=== PATIENT | male | born 1955 | race Caucasian/White ===

== ENCOUNTER → 2018-02-06 01:00 | Outpatient (CLI) | payer OTHER, SELFPAY | PROVIDERS: Family Provider Family Medicine; PCP Family Medicine | DX: Z23 Encounter for immunization (principal) | CPT/HCPCS: 90471; 90686 ==

== ENCOUNTER → 2018-07-28 07:33 | Outpatient (CLI) | payer OTHER, SELFPAY ==
--- NOTE | 2018-07-28 07:35 | DI.RAD.S_ITS ---
PROCEDURE: XR LUMBAR SPINE MIN 4V INDICATIONS: lumbsacral spondylposis with hip djd and left LE pain TECHNIQUE: 5 views of the lumbar spine were acquired. COMPARISON: [facility], , L-SPINE 2-3 VIEWS, 12/17/2015, 8:27. FINDINGS: Bones: 5 nonrib-bearing vertebrae are present. There is normal bony alignment. No vertebral body compression fractures. Note is made of a moderately severe degree of degenerative disc disease at L3-4, and slightly less at L5-S1. No suspicious bony lesions. Soft tissues: Overlying bowel gas pattern is normal. No suspicious soft tissue calcifications. Oblique images: No pars defects. IMPRESSION: The degenerative disc disease present at L3-4 does not appear to have significantly worsened from 2016 bed at the L5-S1 level there has been a mild interval worsening of the degree of disc height reduction at that level when compared to the prior study. No interval trauma is found. Spinal or foraminal stenosis referrable to the 2 levels discussed above may be present in this clinical circumstance. Dictated by: Ariel Pang M.D. on 07/28/2018 at 10:22 Approved by: Ariel Pang M.D. on 07/28/2018 at 10:24
== END ==
PROVIDERS: PCP Family Medicine; Visit Provider Physical Medicine & Rehabilitation
DX: M47.817 Spondylosis without myelopathy or radiculopathy, lumbosacral region (principal); M51.36 Other intervertebral disc degeneration, lumbar region; M51.37 Other intervertebral disc degeneration, lumbosacral region; M16.9 Osteoarthritis of hip, unspecified; M79.605 Pain in left leg
CPT/HCPCS: 72110

== ENCOUNTER → 2019-01-09 14:48 | Outpatient (CLI) | payer OTHER, SELFPAY | PROVIDERS: PCP Family Medicine | DX: Z23 Encounter for immunization (principal) | CPT/HCPCS: 90471; 90662 ==

== ENCOUNTER → 2019-05-03 08:31 | Outpatient (CLI) | payer OTHER, SELFPAY ==
--- NOTE | 2019-05-03 08:33 | DI.MRI.S_ITS ---
PROCEDURE: MR HIP LT WO CON INDICATIONS: left hip pain TECHNIQUE: Noncontrast coronal T1 spin echo and STIR through the bony pelvis. Coronal and axial T2 fast spin echo with fat saturation, sagittal T1 spin echo, and oblique axial T2 fast spin echo with fat saturation through the hip. COMPARISON: None. FINDINGS: Image quality: Diagnostic. Bones and joints: No displaced fractures or dislocations of the left hip are evident. No evidence to suggest avascular necrosis is appreciated. There is diffuse marrow edema involving the head and neck of the proximal left femur. Prominent areas of degenerative cystic change/intraosseous geode formation is evident along the left femoral head with a cystic structure evident measuring approximately 3.4 x 1.5 cm. Degenerative cystic changes are also evident within the adjacent to superior acetabulum with associated marrow edema. Extensive chondromalacia of the hip is identified. Slight bony remodeling along the superior margin of the femoral head and acetabulum is evident. The alpha angle of the right femoral head may be slightly increased at approximately 57?. There is a small left hip joint effusion. The remainder of the imaged osseous structures of the included pelvis demonstrate no acute fractures or suspicious osseous lesions. However, there appear to be at least moderate degenerative changes of the pubis symphysis and included lower lumbar spine. Probable mild degenerative changes of the right hip and sacroiliac joints are evident. Labrum: Evaluation of the acetabular labrum is suboptimal without intra-articular contrast. However, there is chronic labral degenerative tearing evident along the entire superior aspect of the labrum with probable additional tearing extending through the entire posterior labrum. No large paralabral cysts are appreciated. Tendons and ligaments: The ligamentum teres is not adequately seen and may be chronically torn. There is mild increased signal involving the distal left gluteus minimus tendon without significant change in the distal left gluteus medius tendon is unremarkable. There is slight thickening of the greater trochanteric bursa without significant fluid contained within the bursa. The distal iliopsoas and proximal hamstrings tendons are within normal limits. Soft tissues: Visualized muscles demonstrate normal bulk and internal signal. Quadratus femoris muscle demonstrates no internal edema to suggest ischiofemoral impingement. The proximal sciatic neurovascular bundle appears normal adjacent to the hamstring tendons. No free pelvic fluid. Bladder wall thickness is normal. Genitourinary structures and bowel loops appear normal where visualized. IMPRESSION: 1. Severe degenerative changes of the left hip demonstrating prominent intraosseous degenerative cystic change of the femoral head and mild degenerative cystic change of the superior acetabulum and severe chondromalacia of the hip. 2. No discrete fractures or evidence of avascular necrosis of the left hip. 3. Probable circumferential degenerative left acetabular labral tearing. 4. Mild distal left gluteus minimus tendinopathy without significant tearing. 5. [id number] degenerative changes involving the other pelvic joints. 6. Probable full-thickness tear of the ligamentum teres of the left hip. Dictated by: Placido Banda M.D. on 05/03/2019 at 15:42 Approved by: Placido Banda M.D. on 05/03/2019 at 15:46
== END ==
PROVIDERS: PCP Family Medicine; Visit Provider Physical Medicine & Rehabilitation
DX: M16.12 Unilateral primary osteoarthritis, left hip (principal); M94.252 Chondromalacia, left hip
CPT/HCPCS: 73721

== ENCOUNTER → 2019-06-06 12:00 | Outpatient (CLI) | payer OTHER, SELFPAY | PROVIDERS: PCP Family Medicine; Referring Provider Orthopaedic Surgery; Visit Provider Orthopaedic Surgery | DX: Z01.818 Encounter for other preprocedural examination (principal) | CPT/HCPCS: 93005; 93010 ==

== ENCOUNTER → 2019-06-07 16:48 | Outpatient (CLI) | payer OTHER, MEDICARE, SELFPAY ==
[2019-06-07 17:49] LABS: Add Manual Diff / Slide Review NO; Basophils Absolute Auto 100 /uL (0-100); Basophils Percent Auto 1.1 % (0-2); Eosinophils Absolute Auto 400 /uL (0-450); Eosinophils Percent Auto 5.7 % (2-4); Hematocrit 45.1 % (41-53); Hemoglobin 15.4 g/dL (13.5-17.5); Lymphocytes Absolute Auto 1300 /uL (1100-4500); Lymphocytes Percent Auto 17.7 % (25-40); Mean Corpuscular HGB Conc 34.2 % (30-36); Mean Corpuscular Hemoglobin 32.5 PG (26-34); Mean Corpuscular Volume 94.9 fL (80-100); Monocytes Absolute Auto 600 /uL (0-900); Neutrophils Absolute Auto 5100 /uL (1500-7000); Neutrophils Percent Auto 67.5 % (50-75); Platelet Count 280 X10^3/uL (150-400); Red Blood Cell Count 4.76 X10^6/uL (4.5-5.9); Red Cell Distribution Width 13.2 % (11.6-14.8); White Blood Cell Count 7.5 X10^3/uL (4.5-11.0)
[2019-06-07 18:00] LABS: Carbon Dioxide 25 mmol/L (22-32); Chloride 103 mmol/L (98-107); HEMOLYSIS < 15 (0-50); Potassium 4.2 mmol/L (3.4-5.1); Sodium 138 mmol/L (137-145)
== END ==
PROVIDERS: PCP Family Medicine; Referring Provider Orthopaedic Surgery; Visit Provider Orthopaedic Surgery
DX: Z01.818 Encounter for other preprocedural examination (principal); Z01.812 Encounter for preprocedural laboratory examination
CPT/HCPCS: 36415; 80051; 85025

== ENCOUNTER → 2019-08-30 14:48 | Outpatient (CLI) | payer OTHER, SELFPAY ==
[2019-08-30 17:19] LABS: Add Manual Diff / Slide Review NO; Basophils Absolute Auto 100 /uL (0-100); Eosinophils Absolute Auto 700 /uL (0-450); Eosinophils Percent Auto 10.2 % (2-4); Hematocrit 42.9 % (41-53); Hemoglobin 14.8 g/dL (13.5-17.5); Lymphocytes Absolute Auto 1200 /uL (1100-4500); Lymphocytes Percent Auto 17.6 % (25-40); Mean Corpuscular HGB Conc 34.5 % (30-36); Mean Corpuscular Hemoglobin 32.5 PG (26-34); Mean Corpuscular Volume 94.4 fL (80-100); Monocytes Absolute Auto 500 /uL (0-900); Monocytes Percent Auto 7.3 % (3-14); Neutrophils Absolute Auto 4100 /uL (1500-7000); Neutrophils Percent Auto 62.9 % (50-75); Platelet Count 250 X10^3/uL (150-400); Red Blood Cell Count 4.54 X10^6/uL (4.5-5.9); Red Cell Distribution Width 12.7 % (11.6-14.8); White Blood Cell Count 6.6 X10^3/uL (4.5-11.0)
[2019-08-30 17:40] LABS: Carbon Dioxide 24 mmol/L (22-32); Chloride 101 mmol/L (98-107); HEMOLYSIS < 15 (0-50); Potassium 3.7 mmol/L (3.4-5.1); Sodium 135 mmol/L (137-145)
== END ==
PROVIDERS: PCP Family Medicine; Referring Provider Orthopaedic Surgery; Visit Provider Orthopaedic Surgery
DX: Z01.818 Encounter for other preprocedural examination (principal); Z01.812 Encounter for preprocedural laboratory examination
CPT/HCPCS: 36415; 80051; 85025

== ENCOUNTER → 2019-09-04 08:37 | Outpatient (CLI) | payer OTHER, SELFPAY ==
[2019-09-05 15:20] LABS: COVID19 Sendout Not Detected (Not Detect)
== END ==
PROVIDERS: PCP Family Medicine; Visit Provider Registered Nurse
DX: Z01.812 Encounter for preprocedural laboratory examination (principal)
CPT/HCPCS: 87635

== ENCOUNTER 2019-09-07 09:51 | Observation (INO) | payer OTHER, SELFPAY ==
[2019-06-15 07:36] VITALS: BMI 28.4
[2019-09-03 10:16] VITALS: BMI 28.4
[2019-09-06] VITALS (14 sets, daily range): BP systolic 102–147; BP diastolic 59–86; PULSE 45–62; RESP 12–19; TEMP 36–36.7; O2SAT 94–100; BMI 27.1
--- NOTE | 2019-09-06 | DI.RAD.S_ITS ---
PROCEDURE: XR PELVIS 1-2V INDICATIONS: POST -OP LEFT HIP TECHNIQUE: 1 view of the lower pelvis acquired. COMPARISON: None. FINDINGS: Bones: Patient is status post a left hip arthroplasty, with hardware components in expected positions. The hip joint appears congruent. The visualized bony structures appear intact. Soft tissues: Overlying postoperative changes are noted. No suspicious soft tissue densities. IMPRESSION: Normal alignment after left hip arthroplasty. Dictated by: Ariel Pang M.D. on 09/06/2019 at 12:10 Approved by: Ariel Pang M.D. on 09/06/2019 at 12:10
[2019-09-06] MEDS: LACTATED RINGERS 1,000 ML 42 ML IV (08:37)
--- NOTE | 2019-09-06 09:23 | PM.PREOP ---
Pre-operative Note COVID-19 COVID-19 status: Negative Result date/Date tested (Pos, Neg/Pending): 09/04/19 Interval Note History & Physical reviewed/Exam performed by Physician: Yes Changes to H&P: No
--- NOTE | 2019-09-06 09:24 | PM.HP.1 ---
History of Present Illness History of Present Illness Date Patient Seen: 09/06/19 Time Patient Seen: 09:24 Chief complaint: [id number] Narrative: 63-year-old male left hip pain gradually increasing over the last couple of years due to degenerative joint disease. Admitted for planned an elective left total hip arthroplasty Patient History Medical History Asthma (Chronic Unknown) Eczema (Chronic Unknown) Surgical History History of bunionectomy (Resolved Unknown) History of incision and drainage (Acute) Hx of Achilles tendon repair (Resolved Unknown) Hx of eye surgery (Acute) S/P foot surgery, right (Acute) Family & Social History Family History Brother Hypertension Brother Asthma Father Blood disease Mother Asthma Social History: household members spouse Prior Living Arrangements House Safety & Behavioral: Feels Safe in Current Yes Environment Been Physically Hurt or No Threatened By a Person Suicidal Ideation Description None Suicide Plan Description No Plan Tobacco & Substance use: Smoking Status Former smoker alcohol intake current alcohol intake frequency 0-2 drinks per day Substance Use Type does not use Meds Home Medications and Allergies Home Medications Medication Instructions Recorded Confirmed Type flunisolide 0.025 mg NS BID #0 11/23/11 09/06/19 History albuterol sulfate 1 inh INHALATION QID PRN #0 02/18/12 09/06/19 History ascorbic acid (vitamin C) [Vitamin 1,000 mg PO BID #0 02/18/12 09/06/19 History C] cholecalciferol (vitamin D3) 2,000 unit PO DAILY #0 02/18/12 09/06/19 History [Vitamin D3] ibuprofen 400 mg PO Q6H PRN #0 02/18/12 09/06/19 History cyclobenzaprine 10 mg PO Q HS PRN 06/15/19 09/06/19 History Allergies Allergy/AdvReac Type Severity Reaction Status Date / Time fluticasone [From Flonase] Allergy Mild Rosacea Verified 09/06/19 07:58 house dust mite Allergy Mild Verified 09/06/19 07:58 mold Allergy Mild Verified 09/06/19 07:58 celecoxib [From Celebrex] AdvReac Intermediate Chest Verified 09/06/19 07:58 tightness Review of Systems Review of Systems ROS: Yes All systems reviewed with the patient and are negative except as otherwise documented Exam Vital Signs (past 8 hours): - 09/06/19 08:02 Temperature 97.7 F Pulse Rate 59 L Respiratory Rate 14 Blood Pressure 147/86 H Pulse Oximetry 96 Oxygen Delivery Method Room Air Narrative Exam Narrative: Patient is afebrile and vital signs are stable. HEENT normocephalic atraumatic Lungs clear auscultation Heart regular rate rhythm Abdomen benign Extremities benign with the exception of loss of range of motion left hip and pain on extremes of motion. Neurovascular examination is intact Objective ECG Impression: Severe left hip degenerative joint disease Assessment & Plan Assessment & Plan narrative: 63-year-old male progressive left hip DJD with pain with activities and rest, limited ambulation activity tolerance, failure of conservative treatment and difficulties with ADLs. Elects proceed with total hip arthroplasty and gives informed consent. COVID-19 COVID-19 status: Negative Result date/Date tested (Pos, Neg/Pending): 09/04/19
[2019-09-06] MEDS: CEFAZOLIN 2 GM/100 ML FROZ.PIGGY IV ×2 (09:41→17:55)
[2019-09-06] MEDS: TRANEXAMIC ACID 1,000 MG VIAL 1000 MG IV ×2 (10:00→10:48)
--- NOTE | 2019-09-06 10:16 | SUR.OPER ---
Lateral on padded OR bed. Gel axillary roll. Arms secured on padded armboard with pillow supporting top arm. Padded hip positioner braces x4 - anterior and posterior chest and pelvis. Additional gel pad used anterior pelvis. Gel pad under bottom leg from knee to foot and secured with tape over sheet.
[2019-09-06] MEDS: ROPIVACAINE 0.5% PF 5 MG/ML 20ML VIAL 60 ML INJ (10:21)
[2019-09-06] MEDS: MORPHINE 4 MG/ML INJ INJ (10:22)
[2019-09-06] MEDS: KETOROLAC 30 MG/ML VIAL INJ (10:22)
--- NOTE | 2019-09-06 11:25 | P.OP_ITS ---
Operative Date/Time/Diagnoses Date of procedure: 09/06/19 Time of procedure: 11:25 Pre-op diagnosis: Left hip degenerative joint disease Post-op diagnosis: same Procedure & Clinicians Procedure: Left total hip arthroplasty (CPT code 74997 with assistant corporate secretary) Same procedure as scheduled: Yes Indications: Patient is an 63-year-old male with severe left hip DJD. The patient has pain with activities and at rest, limited ambulation and activity tolerance, difficulties with ADLs, and failure of conservative treatment. We have discussed the nature of condition, treatment options, risks and benefits, and patient elects to proceed with total hip arthroplasty and gives informed consent. Surgeon: Kannan Ellis Rose Grading Supervisor: Doris Álvarez Anesthesia Type: General and Spinal Operative Notes Closure Type: primary Specimen(s): none sent Prosthetic devices, grafts, tissues, transplants, or devices: Acetabulum: Palma and Nephew R3 acetabular component size 54 mm Femoral component: Palma and Nephew Anthology stem size 8 with high offset Femoral head: 36 mm + 4 cobalt chrome Estimated Blood Loss (mL): 200 Procedure in detail: After satisfaction induction of anesthetic, and administration of IV antibiotics, the patient was positioned in the lateral decubitus position with all bony prominences well padded and pelvic position secured using a hip dean of women positioning device. Left hip and lower extremity prepped and draped in the usual sterile fashion, 1st dose of intravenous tr anexamic acid was administered, then a longitudinal incision was created centered over the greater trochanter and carried sharply through the skin and subcutaneous tissues down to the fascia martina which was divided longitudinally and retracted with a Charnley retractor. External rotators visualize, cut, tagged, and retracted posteriorly, then the capsule was cut in a T-type fashion with the corners tagged and retracted. Hip was dislocated and femoral neck cut made according to preoperative templating. Acetabular retractors then placed, and the acetabular labrum and osteophytes were excised. The acetabulum was then sequentially reamed to 53 mm with an excellent circumferential ream and fit with the trial. The trial component was removed and a permanent size 54 mm Palma and Nephew R3 acetabular component was selected, positioned, and impacted with satisfactory position and fixation achieved. Permanent liner was then inserted with the elevated lip directed posteriorly. Soft tissue then removed off the lateral femoral neck in the lateral neck was entered using a box osteotome. T- handled reamers placed down the canal followed by sequential broaching to a with the final broach left in place for trial reduction which demonstrated excellent leg length and range of motion and good stability characteristics with a +0 ball then another trial yielded excellent leg length, range of motion, and stability characteristics with a 36 mm + 4 trial ball, that is better stability with flexion adduction and internal rotation to about 80?. The trial and broach were removed, and a permanent size 8 Palma and Nephew Synergy stem was selected and inserted with excellent position and fixation achieved. Another trial reduction yielded the above characteristics so the trial ball was exchanged for a permanent 36 mm + 4 Oxinium ball. The hip was irrigated and reduced and excellent leg length range of motion and stability characteristics were achieved and maintained. Periarticular tissues were infiltrated with ropivacaine, morphine, and Toradol. The hip was copiously irrigated, and the capsule repaired with #2 Ethibond, and the piriformis was repaired back to the greater trochanter with the same. Fascia martina closed with interrupted #1 Ethibond sutures, and the subcutaneous tissues were closed in 2 layers of 0 Vicryl and 2 0 Vicryl. Skin was closed with raymond and sterile dressings applied. Second dose of tranexamic acid was administered intravenously, and the anesthetic was terminated. Complications: none Post-operative Condition: stable Disposition: PACU Plan for aftercare: Patient will be admitted to the acute care hic[facility], and anticip ate discharge on day of surgery or postop day 1 with follow-up in office in 10- 14 days. Outpatient physical therapy will be arranged and patient will continue to observe posterior hip precautions. Patient will continue use of postoperative Lovenox for 10 days postop.
--- NOTE | 2019-09-06 11:29 | SUR.PHASEI ---
Patient somnolent but arouses to voice.
[2019-09-06] MEDS: LACTATED RINGERS 1,000 ML 125 ML IV ×2 (13:17→21:37)
--- NOTE | 2019-09-06 13:48 | PC.NURSE ---
Admitted to rm 229 from PACU at 1215. Pt is AO x3 and making needs known with clear speech. Bulky dsg to l hip is CDI. Denies pain. Reports numbness from knee and distal; however, is able to lift leg off bed. Ice pack is in place. Educated to room, routine, fall risk, call light, fall risk. Instructed pt to wait for assistance before getting OOB. Pt is hopeful to be discharged today. He states that he does not eat a lot during the day and declines any food at this time. Denies nausea. Provided menu and placed order for general diet per protocol. LR infusing to patent PIV.
[2019-09-06] MEDS: ACETAMINOPHEN 325 MG TABLET 650 MG PO (14:53)
[2019-09-06] MEDS: ONDANSETRON 4 MG/2 ML INJ IV (15:43)
--- NOTE | 2019-09-06 17:15 | PT.IIE ---
Current Diagnoses Unilateral primary osteoarthritis, left hip (09/06/19) Surgery Performed Operation Date: 06/27/19 09:45 <No data on this case meets the specified criteria> Operation Date: 09/06/19 09:45 Actual Procedures p Total Hip Arthroplasty(Left) - Kannan Ellis MD Surgical History (Last Reviewed 09/06/19 @ 09:26 by Kannan Ellis MD) History of bunionectomy (Resolved Unknown) History of incision and drainage (Acute) Hx of Achilles tendon repair (Resolved Unknown) Hx of eye surgery (Acute) S/P foot surgery, right (Acute) Medical History (Last Reviewed 09/06/19 @ 09:26 by Kannan Ellis MD) Asthma (Chronic Unknown) Eczema (Chronic Unknown) Physical Therapy Inpatient Evaluation/Re-Eval M1 PT/OT-IP Prior Functional Status Start: 09/06/19 15:16 Freq: NEEDED Status: Active Protocol: Document 09/06/19 16:51 AW (Rec: 09/06/19 17:15 AW [email or web address]) Medical Review Prior Functional Status Medical History Reviewed Yes Diet/Fluid Consistency Regular Communication WNL Mobility and Gait Pt enjoys an active lifestyle including running and cycling. He is functionally independent in all regards. Activities of Daily Living and IADL's Independent Social History Household Members spouse Living Arrangements House Number of Floors (Floors) Two Floors Number of Stairs To Enter/Railing? Level entrance. 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 He lives with his , Bambi, who is available and able to assist as needed. M2 PT-IP Current Condition Start: 09/06/19 15:16 Freq: NEEDED Status: Active Protocol: Document 09/06/19 16:51 AW (Rec: 09/06/19 17:15 AW [email or web address]) Physical Therapy Current Condition Current Condition Evaluation Date 09/06/19 Treatment Diagnosis s/p L MARIFER with posterior approach, difficulty in walking Onset Date 09/06/19 Precautions Posterior Hip Precautions No Hip Flexion > 90 degrees,No Hip Internal Rotation,No Hip Adduction Weight Bearing Status Weight Bearing Status Weight Bear as Tolerated M3 PT-IP Subjective Start: 09/06/19 15:16 Freq: NEEDED Status: Active Protocol: Document 09/06/19 16:51 AW (Rec: 09/06/19 17:15 AW [email or web address]) Subjective Physical Therapy Visit Type Type Initial Evaluation Visit Start Time 15:27 Visit Stop Time 15:57 Total Visit Minutes 30 Physical Therapy Visit Comments Patient Comments Pt is willing to participate with PT Patient Goals Pt hopes to return home today or tomorrow Therapy Pain Assessment Pain When Pain Assessed During Mobility Pain Present Pain Present Pain Reported Location Left Lateral Hip Intensity 3 Pain Management Techniques Apply Cold,Timing of Activity with Medications M4 PT-IP Mobility and Gait Start: 09/06/19 15:16 Freq: NEEDED Status: Active Protocol: Document 09/06/19 16:51 AW (Rec: 09/06/19 17:15 AW [email or web address]) PT-Bed Mobility Assessment Supine to Sit Supine to Sit Contact Guard Assistance Scooting Scooting to Edge of Bed Standby Assistance PT-Transfer Assessment Sit to and From Stand Sit to and from Stand Minimal Assistance,Use of Upper Extremities Equipment Transfer Assistive Device Gait Belt,Front Wheeled Walker Orthotic/Prosthetic Devices or Brace: No Transfers Transfer Destination Chair Transfer Technique pt ambulated with FWW Transfer Ability Level of Assist Contact Guard Assistance Comments Mobility Comments Pt was reclined in bed upon PT arrival. After education on posterior hip precautions, pt completed supine to sit from flat bed by using his right leg to lift his operative leg. He was able to sit EOB and then completed sit to stand with FWW min A x 1 and cues to push off from bed surface with UE. He ambulated toward the sink, completed a 180- degree turn and ambulated to the chair with FWW CGA. Pt became pale and diaphoretic as he approached the chair. He transferred to the chair and was positioned with call light and all needs within reach. BP was stable throughout with SBP 117-124. SpO2 was 97-99% on room air. Gait Assessment Gait Gait Assistance Required: Contact Guard Assist Distance (Feet) 10 Able to Maintain Weight Bearing Status Yes During Gait Assistive Devices Assistive Device Gait Belt,Front Wheeled Walker Gait Deviations General Gait Pattern Antalgic,Decreased Stride Length,Decreased Feet Clearance,Flexed Trunk,Step-to Gait Factors Limiting Gait Function Factors Limiting Gait Function Decreased Activity Tolerance, Decreased Sensation,Decreased Strength,Pain,Poor Safety Awareness Comments Gait Comments Pt ambulated in the room with FWW CGA, requiring cues for small steps during turn to avoid internal rotation of the operative hip. Pt required encouragement to use the FWW safely, attempting to abandon it twice. Stair Climbing Assessment Comments Stair Climbing Comments Not assessed. Pt will be able to avoid stairs at home for as long as needed. PT-Balance Assessment Sitting Balance and Reactions Static Sitting Balance Ability Normal Dynamic Sitting Balance Ability Normal Standing Balance and Reactions Static Standing Balance Ability Good Dynamic Standing Balance Ability Good Device Used FWW M5 PT-IP Objective Assessments Start: 09/06/19 15:16 Freq: NEEDED Status: Active Protocol: Document 09/06/19 16:51 AW (Rec: 09/06/19 17:15 AW [email or web address]) Orientation Orientation/Cognition Level of Alertness Alert Orientation Name,Day of Week,Place, Situation Language Function Ability No Deficits Noted Safety Awareness Decreased Safety Awareness Gross Range of Motion Upper Extremity ROM Assessment Within Functional Limits Lower Extremity ROM Assessment Left Impaired Strength Upper Extremity Strength Assessment Within Functional Limits Lower Extremity Strength Assessment Left Impaired Comments Strength Comments RLE grossly 5/5 Coordination Assessment Gross Coordination Gross Coordination WNL Sensation Assessment Sensation Gross Sensation Left LE Impaired Light Touch Impaired Comments Sensation Comments Pt reports impaired light touch sensation of the distal L LE. Muscle Tone Muscle Tone WNL Yes M6 PT-IP Treatment Start: 09/06/19 15:16 Freq: NEEDED Status: Active Protocol: Document 09/06/19 16:51 AW (Rec: 09/06/19 17:15 AW [email or web address]) Physical Therapy Treatment Exercises Exercises Ankle Pumps,Gluteal Sets,Quad Sets,Heel Slides Education Education Provided Precautions,Weight Bearing Status,Post-Op Packet,Safety Other Treatments Other Treatment Performed Provided education on role of PT, plan of care, weightbearing status, posterior hip precautions, and safe use of FWW M7 PT-IP Assessment and Plan Start: 09/06/19 15:16 Freq: NEEDED Status: Active Protocol: Document 09/06/19 16:51 AW (Rec: 09/06/19 17:15 AW [email or web address]) PT Summary Assessment and Plan Potential Rehabilitation Potential Excellent Status of Condition at Evaluation Evolving Summary Impairments Pain,ROM,Strength,Balance, Sensation,Bed Mobility, Transfers,Gait,Activity Tolerance Assessment Summary Isaiah is an active 63 yo man seen for PT evaluation on POD0 following L MARIFER with posterior approach. He is independent at baseline. He required CGA to min A x 1 for transfers and gait on evaluation. He also required encouragement to use the FWW. Pt has procured much of the equipment needed for safe discharge but will need FWW for home use. Pt will be safe to discharge home with family assist and outpatient PT once medically cleared. Goals Bed Mobility Goal Independent Transfer Goal Standby Assistance,Front Wheeled Walker Gait Goal Standby Assistance,Front Wheel Walker Gait Distance 200 Days to Meet Goals 3 Frequency of Treatment Frequency Of Treatment Twice a Day Treatment Plan Physical Therapy Treatment Plan Bed Mobility Training,Transfer Training,Gait Training, Therapeutic Exercise,Balance Retraining,Post Op Education, Discharge Planning,Hot or Cold Pack Recommendations To Nursing Amount of Assist Needed Standby Assistance,1 Person Assist Discharge Recommendations PT Discharge Recommendations Home with Assistance, Outpatient PT Equipment Needed for Home Before FWW for home use Discharge Transportation Needs at Discharge Private Vehicle
[2019-09-06] MEDS: ONDANSETRON 4 MG ODT PO (19:55)
[2019-09-06] MEDS: hydrOXYzine pamoate 25 MG CAPSULE PO (20:20)
[2019-09-07] MEDS: ONDANSETRON 4 MG/2 ML INJ IV ×2 (00:56→05:44)
[2019-09-07] MEDS: CEFAZOLIN 2 GM/100 ML FROZ.PIGGY IV (01:03)
[2019-09-07 01:08] VITALS: BP 135/72; PULSE 72; RESP 16; TEMP 37.1; O2SAT 96
--- NOTE | 2019-09-07 02:22 | PC.NURSE ---
Addendum entered by Krystal Prescott R.N. 09/07/19 06:17: Pt states that he has minimal pain when in bed. States pain 5/10 with ambulation to bathroom, but continues to decline pain medication. Pt c/o nausea. Zofran repeated. Vistaril given. Pt states he slept poorly. Pt attempting to void for 30 minutes. Unable to do so. Pt agreeable to In and Out cath, same. In and out cath done for 700 ml mari urine without difficulty. Pt tolerated procedure well. Original Note: 0100 Pt awake and requesting something for nausea. Zofran given. Pt also given Mint tea. Pt has not voided post op and states he has no urge to void. Pt states that tea will often help him urinate. Pt denies pain. Pt doing ankle waves and calf pumps. Pt states he has been OOB twice on previous shift to the bathroom and did well. Pt also demonstrating C,DB. Pt encouraged to call for any needs or questions. Pt agreeable.
[2019-09-07 05:02] LABS: Hematocrit 37.4 % (41-53); Hemoglobin 13.1 g/dL (13.5-17.5)
[2019-09-07 05:05] VITALS: BP 152/75; PULSE 71; RESP 16; TEMP 36.9; O2SAT 95
[2019-09-07] MEDS: hydrOXYzine pamoate 25 MG CAPSULE PO (05:44)
[2019-09-07 08:10] VITALS: BP 143/77; PULSE 59; RESP 14; TEMP 37.6; O2SAT 97
[2019-09-07 08:15] VITALS: RESP 16; O2SAT 98
[2019-09-07] MEDS: DOCUSATE 100 MG CAPSULE PO (08:29)
[2019-09-07] MEDS: SODIUM CHLORIDE 0.9% FLUSH 10 ML IV (08:29)
[2019-09-07] MEDS: ASCORBIC ACID 500 MG TABLET 1000 MG PO (08:29)
[2019-09-07] MEDS: ASPIRIN EC 81 MG TABLET PO (08:29)
[2019-09-07] MEDS: CHOLECALCIFEROL (VITAMIN D3) 1,000 UNIT TABLET 2000 UNIT PO (08:29)
[2019-09-07] MEDS: ACETAMINOPHEN 325 MG TABLET 650 MG PO (08:29)
--- NOTE | 2019-09-07 10:31 | PT.IPTN ---
Current Diagnoses Unilateral primary osteoarthritis, left hip (09/07/19) Surgery Performed Operation Date: 06/27/19 09:45 <No data on this case meets the specified criteria> Operation Date: 09/06/19 09:45 Actual Procedures p Total Hip Arthroplasty(Left) - Kannan Ellis MD Physical Therapy Treatment Note M2 PT-IP Current Condition Start: 09/06/19 15:16 Freq: NEEDED Status: Active Protocol: Document 09/06/19 16:51 AW (Rec: 09/06/19 17:15 AW [email or web address]) Physical Therapy Current Condition Current Condition Evaluation Date 09/06/19 Treatment Diagnosis s/p L MARIFER with posterior approach, difficulty in walking Onset Date 09/06/19 Precautions Posterior Hip Precautions No Hip Flexion > 90 degrees,No Hip Internal Rotation,No Hip Adduction Weight Bearing Status Weight Bearing Status Weight Bear as Tolerated M3 PT-IP Subjective Start: 09/06/19 15:16 Freq: NEEDED Status: Active Protocol: Document 09/07/19 10:08 KS (Rec: 09/07/19 10:53 KS [id number]) Subjective Physical Therapy Visit Type Type Treatment Note Visit Start Time 10:08 Visit Stop Time 10:31 Total Visit Minutes 23 Number of SHIP WORKER Visits 1 Physical Therapy Visit Comments Patient Comments Pt is willing to participate with PT Patient Goals Pt hopes to go home today. Therapy Pain Assessment Pain When Pain Assessed During Mobility Pain Present Pain Present Pain Reported Location Left Lateral Hip Scale Used no number given Description Tightness Pain Management Techniques Re-positioning M4 PT-IP Mobility and Gait Start: 09/06/19 15:16 Freq: NEEDED Status: Active Protocol: Document 09/07/19 10:08 KS (Rec: 09/07/19 10:53 KS [id number]) PT-Bed Mobility Assessment Scooting Scooting to Edge of Bed Standby Assistance PT-Transfer Assessment Sit to and From Stand Sit to and from Stand Standby Assistance,Use of Upper Extremities Equipment Transfer Assistive Device Gait Belt,Straight Cane Orthotic/Prosthetic Devices or Brace: No Transfers Transfer Destination Chair Transfer Technique pt ambulated with FWW Transfer Ability Level of Assist Standby Assistance,Contact Guard Assistance,Use of Upper Extremities Comments Mobility Comments Pt was reclined in chair upon arrival from therapy. Able to recall 3/3 precautions. Instructed pt in glute sets, quad sets, and ankle pumps and use of SPC. Pt then scooted to edge of chair and sit<> stand w/ SPC SBA w/ good adherance to precautions. Pt denied pain or lightheadedness upon standing and then ambulated ~250 ft w/ SPC and CGA. Pt had good tolerance for ambulation, reported feelings of tightness. Cues for equal step length and increased stride during ambulation, gait improved w/ cues. Pt returned to room and ambulated w/o AD from entrance to bed w / CGA. Pt was stable and had no LOB throughout ambulation. Pt reports he has a quad cane at home he can use. Pt left in chair w/ all needs in reach. Gait Assessment Gait Gait Assistance Required: Contact Guard Assist Distance (Feet) 265 Able to Maintain Weight Bearing Status Yes During Gait Assistive Devices Assistive Device Gait Belt,Straight Cane Orthotic/Prosthetic Devices or Brace: No Gait Deviations General Gait Pattern Antalgic,Decreased Stride Length,Decreased Feet Clearance Factors Limiting Gait Function Factors Limiting Gait Function Decreased Activity Tolerance, Decreased Sensation,Decreased Strength Comments Gait Comments Pt safely ambulated ~265 ft w/ CGA and SPC for 250 ft and no AD for final 15 ft. Please refer to mobility section for more details. Stair Climbing Assessment Comments Stair Climbing Comments Not assessed. Pt will be able to avoid stairs at home for as long as needed. PT-Balance Assessment Sitting Balance and Reactions Static Sitting Balance Ability Normal Dynamic Sitting Balance Ability Normal Standing Balance and Reactions Static Standing Balance Ability Good Dynamic Standing Balance Ability Good Device Used SPC, No AD M5 PT-IP Objective Assessments Start: 09/06/19 15:16 Freq: NEEDED Status: Active Protocol: Document 09/06/19 16:51 AW (Rec: 09/06/19 17:15 AW [email or web address]) Orientation Orientation/Cognition Level of Alertness Alert Orientation Name,Day of Week,Place, Situation Language Function Ability No Deficits Noted Safety Awareness Decreased Safety Awareness Gross Range of Motion Upper Extremity ROM Assessment Within Functional Limits Lower Extremity ROM Assessment Left Impaired Strength Upper Extremity Strength Assessment Within Functional Limits Lower Extremity Strength Assessment Left Impaired Comments Strength Comments RLE grossly 5/5 Coordination Assessment Gross Coordination Gross Coordination WNL Sensation Assessment Sensation Gross Sensation Left LE Impaired Light Touch Impaired Comments Sensation Comments Pt reports impaired light touch sensation of the distal L LE. Muscle Tone Muscle Tone WNL Yes M6 PT-IP Treatment Start: 06/04/20 15:16 Freq: NEEDED Status: Active Protocol: Document 09/07/19 10:08 KS (Rec: 09/07/19 10:53 NH [id number]) Physical Therapy Treatment Exercises Exercises Ankle Pumps,Gluteal Sets,Quad Sets Education Education Provided Precautions,Weight Bearing Status,Post-Op Packet,Safety Other Treatments Other Treatment Performed Reviewed exercises, weightbearing status, precautions, and gait w/ SPC. M7 PT-IP Assessment and Plan Start: 09/06/19 15:16 Freq: NEEDED Status: Active Protocol: Document 09/07/19 10:08 KS (Rec: 09/07/19 10:53 NH [id number]) PT Summary Assessment and Plan Potential Rehabilitation Potential Excellent Status of Condition at Evaluation Evolving Summary Impairments Pain,ROM,Strength,Balance, Sensation,Bed Mobility, Transfers,Gait,Activity Tolerance Progress Towards Goals Progressing Toward Goals Assessment Summary Isaiah was able to complete mobility and transfers w/ SBA and CGA for ambulation. He demonstrated good awareness and was able to adhere to all precautions throughout treatment. Good tolerance for ambulation (~265 ft) w/ SPC and CGA. Pt ambulated 15 ft w/ o AD and CGA and was able to remain stable. Pt able to improve gait w/ cues for increased stride and equal step length. Pt is safe to return home when medically stable and will benefit from outpatient PT to regain strength and mobility. Goals Bed Mobility Goal Independent Transfer Goal Standby Assistance,Front Wheeled Walker Gait Goal Standby Assistance,Front Wheel Walker Gait Distance 200 Days to Meet Goals 3 Frequency of Treatment Frequency Of Treatment Twice a Day Treatment Plan Physical Therapy Treatment Plan Bed Mobility Training,Transfer Training,Gait Training, Therapeutic Exercise,Balance Retraining,Post Op Education, Discharge Planning,Hot or Cold Pack Recommendations To Nursing Amount of Assist Needed Standby Assistance,1 Person Assist Discharge Recommendations PT Discharge Recommendations Home with Assistance, Outpatient PT Transportation Needs at Discharge Private Vehicle
--- NOTE | 2019-09-07 11:39 | PC.NURSE ---
Addendum entered by Patric Luna R.N. 09/07/19 11:55: Pt was escorted to POV by administrative accountant via w/c with all belongings. Pt was in no distress. Original Note: Pt to d/c home per MD orders. Reviewed d/c pack- posterior hip precautions, post op care, f/u appt, pain med regimen, s/s wound infx. Educated pt to pain med side effects. Pt is using fww or cane for mobility and gait is steady. Pain is well controlled with tylenol. VSS. Pt is voiding adequate amounts per urinal and taking PO without n/v. He states his will be here soon to pick him up.
--- NOTE | 2019-09-07 14:10 | CM.IDA ---
Initial DCP Assessment Note: Pt is a 63 yo male, resident of [place], now POD#1 from Left hip surgery w/ Dr Ellis PCP: Sameer Garcia Payer: [place]/[employer]EL[employer] Reviewed chart, pt discussed in multidisciplinary rounds this morning. Therapy has cleared pt for return home w/spouse to assist and pt has planned for home, DC order from Ortho has already been initiated this morning. No needs expected from DC planning team although will remain available in case this changes today. NELLY Root
== END 2019-09-07 11:52 | disposition home or self-care (01) ==
LOC: ICU 10:14 → OR 10:31 → ICU 10:33
PROVIDERS: Admitting Provider Orthopaedic Surgery; PCP Family Medicine; Referring Provider Family Medicine; Visit Provider Orthopaedic Surgery
PROC: 0SRB0JZ Replacement of Left Hip Joint with Synthetic Substitute, Open Approach (ICD-10-PCS; CPT 27130; principal; 2019-09-06 09:45)
DX: M16.12 Unilateral primary osteoarthritis, left hip (principal); J45.909 Unspecified asthma, uncomplicated
CPT/HCPCS: 27130; 36415; 72170; 85014; 85018; 87797; 97110; 97116; 97161; 97530; C1776; G0378; J0690; J1100; J1885; J2250; J2270; J2274; J2405; J2704; J3010

== ENCOUNTER 2019-10-30 15:00 | Outpatient (RCR) | payer OTHER, SELFPAY ==
--- NOTE | 2019-06-07 16:00 | PT.OPPOC ---
Physical, Occupational & Speech Therapy At [facility] Current Diagnoses Unilateral primary osteoarthritis, unspecified hip (06/07/19) Visit Care Team Role Provider Type Sameer Garcia DO Primary Care Provider Physician Specialty: Family Practice Address: [address] [place] [address], [id number] Email: [email or web address] Kannan Ellis MD Attending Provider Physician Referring Provider Specialty: Orthopedic Surgery Address: [address] [place] [address], [address] Email: [email or web address] Plan Of Care PT-OP-T Assessment and Plan Start: 06/07/19 08:11 Freq: Status: Active Protocol: Document 06/07/19 09:50 LRN (Rec: 06/07/19 18:35 LRN [id number]) Physical Therapy Assessment Rehab Potential Rehabilitation Potential Excellent Evaluation Complexity Number of Personal Factors/Comorbidities 1-2 Number of Body Systems Impaired 3 Clinical Presentation at Evaluation Stable Impairments Impairments Pain,ROM,Strength Goals Three Impairment Lacks education in L posterior hip precautions. Short Term Goal (STG) Pt will be educated in L posterior hip precautions. STG Duration 06/07/19 (06/07/19: MET GOAL) Mcfp Goal (LTG) Pt will be able to recall L posterior hip precautions and demonstrate appropriate functional movements while adhering to the precautions. LTG Duration 07/20/18 Two Impairment Lacks education in post-op transfer technique. Short Term Goal (STG) Pt will be educated in proper post-op transfer technique for supine<->sit and sit<->stand. STG Duration 06/07/19 (06/07/19: MET GOAL) First Mate Goal (LTG) Pt will demonstrate appropriate post op transfer technique for supine<->sit and sit<->stand, and will be independent and safe with transfers. LTG Duration 07/10/18 One Impairment Lacks appropriate self care HEP. Short Term Goal (STG) Pt will be independent in pre- operative hip strengthening ex 's. STG Duration 06/07/19 (06/07/19: MET GOAL) First Mate Goal (LTG) Pt will be independent in a post-operative self care HEP. LTG Duration 09/05/20 Progress Towards Goals Progress Towards Goals Progressing Toward Goals Progress Comments Goals 1,2,3 Short Term Goals MET. Assessment Summary Assessment Pt presents for pre-operative L posterior MARIFER assessment, education and training for post-operative care. Mr Lee demonstrates fair L hip mobility with restriction due to pain and hard end-feel of hip IR. He has normal strength of the the L hip, but shows weakness with L ankle IV. The pt has no difficulties at this time with transfers or gait on level or stairs pre-operatively. After pt education of exercises, movement precautions, transfers and gait; the pt appears to have a good understanding in these areas. He has been proactive to obtain any needed durable medical goods for post surgical care. He does have a prior history of injury to the R foot & wrist, and L hamstrings, and his time study statistician work schedule, that my hinder his recovery, but overall due to his good mobility and general LE strength the pt is expected to do well with therapy and progress quickly through his rehabilitation. The pt will benefit from skilled physical therapy post operatively for therapeutic exercise, training for transfers as needed, STM, progression of gait to independent without assistive devices/railing on level and stairs, and pt education for self care. Physical Therapy Plan Frequency and Duration Plan of Care Start Date 06/07/19 Plan of Care End Date 09/05/20 Therapeutic Interventions Therapeutic Interventions Home Exercise Program,Manual Therapy,Patient/Caregiver Education,Self-Care/Home Management,Soft Tissue Mobilization,Taping, Therapeutic Exercises Modalities Cold Pack/Ice Massage Next Visit Focus/Plan Next Note Type Re-Evaluation Next Visit Plan Pt will be s/p L posterior MARIFER ; therefore Re-Eval, treatment for post-op MARIFER, and set goals as appropriate. Plan of Care Dates Plan of Care Start Date 06/07/19 Plan of Care End Date 09/05/20 Electronically Signed by: Jolene Medina, PT 06/11/19 [id number] Please Sign and Return: I have reviewed this Plan of Care and certify that the skilled therapy services above are required to meet the patient?s needs. Physician Signature Date Printed Name and Credentials Clinical Instructor Signature Printed Name and Credentials
--- NOTE | 2019-06-07 16:00 | PT.OIE ---
Current Diagnoses Unilateral primary osteoarthritis, unspecified hip (06/07/19) Past Medical History (Last Reviewed 11/22/18 @ 17:58 by Mynor Montague DO) Asthma (Chronic Unknown) Eczema (Chronic Unknown) Past Surgical History (Last Reviewed 11/22/18 @ 17:58 by Mynor Montague DO) History of bunionectomy (Resolved Unknown) Hx of Achilles tendon repair (Resolved Unknown) Visit Care Team Role Provider Type Sameer Garcia DO Primary Care Provider Physician Specialty: Family Practice Address: [address] [place] [address], [address] Email: [email or web address] Kannan Ellis MD Attending Provider Physician Referring Provider Specialty: Orthopedic Surgery Address: [address] [place] [address], [id number] Email: [email or web address] Physical Therapy Initial Evaluation PT-OP-A Visit Information Start: 06/07/19 08:11 Freq: Status: Active Protocol: Document 06/07/19 09:50 LRN (Rec: 06/07/19 10:37 LRN [id number]) Out-Patient Physical Therapy Visit Information Visit Information Visit Type Initial Evaluation Visit Start Time 09:50 Visit Stop Time 10:36 Total Visit Minutes 46 Visit Number 1 Evaluation Information Evaluation Date 06/07/19 Precautions Precautions Pt reports hx of R wrist torn ligaments, torn L hamstring, R 5th digit fx 4-5 yrs ago. Chart review indicated Lumbosacral spondylosis & hx of achilles tendon repair. PT-OP-B Current Condition Start: 06/07/19 08:11 Freq: Status: Active Protocol: Document 06/07/19 09:50 LRN (Rec: 06/07/19 10:37 LRN [id number]) Current Condition History of Current Condition Onset Date 4-5 yrs Current Complaints Intermittent L lateral hip pain that radiates down the leg. LB stiffness. History of Current Condition MRI mid May found L hip to be degenerative; therefore surgery planned for 06/27/19. Today is preop appt. Prior Treatments and Tests Physical Therapy 2-3 yrs ago for L lateral leg pain. Future Testing and Treatments Planned L posterior MARIFER scheduled for 06/27/19 Developmental History Developmental History Played baseball for 42 yrs, 2- 3 yrs ago was treated in PT for IT-Band dysfunction. Treatment Goals Patient/Caregiver Goals Pt goal with therapy is for post-op L MARIFER to return to prior function for golf, bike riding, walking 6-8 miles a day, lifting workouts ( lifts, squats, toe raises). Prior Functional Status Baseline Function- ADL's Independent Baseline Function- Mobility Independent Baseline Function- Gait No Assistive device. 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 Current Functional Impairments (Reported) Functional Limitations- ADL's Can full squat when up on toes . Functional Limitations- Mobility/Gait Can't run or play ball. Pain with carrying golf clubs. Walking pain 6-7/10 slowing walking pace. Difficulty 25% on unlevel ground. Functional Limitations- Work/School Sitting for long periods limited due to pain. Functional Limitations- Recreation/ Can't Run or jump Hobbies Personal Factors Other Personal Factors That May Effect Pt working multimedia developer. Therapy/Recovery PT-OP-C Subjective Start: 06/07/19 08:11 Freq: Status: Active Protocol: Document 06/07/19 09:50 LRN (Rec: 06/10/19 13:29 LRN [id number]) Patient Questionnaires Lower Extremity Functional Scale LEFS Score 51 LEFS Impairment 20 to 39% Impaired (Score 48- 62) OP-PT Pain Assessment Location Left Lateral Hip Pain Location Details L lateral hip Intensity 2 Scale Used Numeric (1 - 10) Description Aching PT-OP-E Functional Tests Start: 06/07/19 08:11 Freq: Status: Active Protocol: Document 06/07/19 09:50 LRN (Rec: 06/10/19 13:04 LRN [id number]) Functional Tests Timed Up and Go (TUG) Score 7 Comments W/O assistive device. TUG Impairment Rating 0% Impaired (Score 10) PT-OP-G Mobility & Gait Start: 06/07/19 08:11 Freq: Status: Active Protocol: Document 06/07/19 09:50 LRN (Rec: 06/07/19 10:37 LRN [id number]) OP Mobility Evaluation Transfers Sit to Stand Independent w/o use of hands. Bed to Chair Transfers Plinth to chair: Independent. Functional Movements Squats Squats on toes Stair Climbing Evaluation Comments Stair Climbing Comments Pt reports no dysfunction with stair ambulation with reciprocal gait. PT-OP-K Range of Motion Start: 06/07/19 08:11 Freq: Status: Active Protocol: Document 06/07/19 09:50 LRN (Rec: 06/10/19 13:04 LRN [id number]) Hip Goniometric Range of Motion Hip Right Passive Testing Position Supine Flexion w/Knee Flexed 132 Straight Leg Raise 85 Abduction 28 Internal Rotation 18 External Rotation 45 Left Passive Testing Position Supine Flexion w/Knee Flexed 120 Straight Leg Raise 85 Abduction 18 Internal Rotation 0 External Rotation 50 Knee Goniometric Range of Motion Knee Left Knee ROM WFL Yes Patient Position Supine Flexion Active (degrees) 135 Extension Active (degrees) 0 Right Knee ROM WFL Yes Patient Position Supine Flexion Active (degrees) 135 Extension Active (degrees) 0 PT-OP-M Strength Start: 06/07/19 08:11 Freq: Status: Active Protocol: Document 06/07/19 09:50 LRN (Rec: 06/10/19 13:04 LRN [id number]) Hip Strength Hip Manual Muscle Testing Right Reason Not Measured WFL Comments Generally 5/5 Left Reason Not Measured WFL Comments Generally 5/5 Knee Strength Knee Manual Muscle Testing Right Reason Not Measured WFL Comments Generally 5/5 Left Reason Not Measured WFL Comments Generally 5/5 Ankle/Foot Strength Ankle and Foot Manual Muscle Testing Right Reason Not Measured WFL Comments Generally 5/5 Left Inversion 3+ Fair+ Comments Generally 5/5 except as listed above PT-OP-Q Treatments Start: 06/07/19 08:11 Freq: Status: Active Protocol: Document 06/07/19 09:50 LRN (Rec: 06/07/19 18:35 LRN [id number]) Therapeutic Activity Therapeutic Activity Sit <-> Supine Name Sit <-> Supine Reps/Minutes 2' Comments I/S pt in proper transfers as if post-operative posterior L MARIFER, then pt demonstrated knowledge of technique exiting from the L side of the plinth table. Sit <-> Stand Name Sit <-> Stand Reps/Minutes 2' Comments I/S pt in proper transfers as if post-operative posterior L MARIFER, then pt demonstrated knowledge of technique. Self-Care/Home Management Treatment Education Patient Education Home Exercise Program Other Education Educated and reviewed pt in posterior MARIFER precautions ( handout issued). Discussed needed durable goods post-surgery (walker, crutches, shower seat, dispute resolution specialist , etc...). Activities Self-Care/Home Management Activities Issued & verbally reviewed HEP of all post op posterior MARIFER exercises, and questions answered. Issued T-Band for HEP. Reviewed proper gait with crutches and walker. Reviewed proper transfer technique for getting in/out of bed (cuing given with pt demonstrating transfer). Reviewed & discussed car transfers. PT-OP-T Assessment and Plan Start: 06/07/19 08:11 Freq: Status: Active Protocol: Document 06/07/19 09:50 LRN (Rec: 06/07/19 18:35 LRN [id number]) Physical Therapy Assessment Rehab Potential Rehabilitation Potential Excellent Evaluation Complexity Number of Personal Factors/Comorbidities 1-2 Number of Body Systems Impaired 3 Clinical Presentation at Evaluation Stable Impairments Impairments Pain,ROM,Strength Goals Three Impairment Lacks education in L posterior hip precautions. Short Term Goal (STG) Pt will be educated in L posterior hip precautions. STG Duration 06/07/19 (06/07/19: MET GOAL) Correction Goal (LTG) Pt will be able to recall L posterior hip precautions and demonstrate appropriate functional movements while adhering to the precautions. LTG Duration 07/20/18 Two Impairment Lacks education in post-op transfer technique. Short Term Goal (STG) Pt will be educated in proper post-op transfer technique for supine<->sit and sit<->stand. STG Duration 06/07/19 (06/07/19: MET GOAL) Correction Goal (LTG) Pt will demonstrate appropriate post op transfer technique for supine<->sit and sit<->stand, and will be independent and safe with transfers. LTG Duration 07/10/18 One Impairment Lacks appropriate self care HEP. Short Term Goal (STG) Pt will be independent in pre- operative hip strengthening ex 's. STG Duration 06/07/19 (06/07/19: MET GOAL) Aircraft Fueler Goal (LTG) Pt will be independent in a post-operative self care HEP. LTG Duration 09/05/20 Progress Towards Goals Progress Towards Goals Progressing Toward Goals Progress Comments Goals 1,2,3 Short Term Goals MET. Assessment Summary Assessment Pt presents for pre-operative L posterior MARIFER assessment, education and training for post-operative care. Mr Lee demonstrates fair L hip mobility with restriction due to pain and hard end-feel of hip IR. He has normal strength of the the L hip, but shows weakness with L ankle IV. The pt has no difficulties at this time with transfers or gait on level or stairs pre-operatively. After pt education of exercises, movement precautions, transfers and gait; the pt appears to have a good understanding in these areas. He has been proactive to obtain any needed durable medical goods for post surgical care. 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 The pt will benefit from skilled physical therapy post operatively for therapeutic exercise, training for transfers as needed, STM, progression of gait to independent without assistive devices/railing on level and stairs, and pt education for self care. Physical Therapy Plan Frequency and Duration Plan of Care Start Date 06/07/19 Plan of Care End Date 09/05/20 Therapeutic Interventions Therapeutic Interventions Home Exercise Program,Manual Therapy,Patient/Caregiver Education,Self-Care/Home Management,Soft Tissue Mobilization,Taping, Therapeutic Exercises Modalities Cold Pack/Ice Massage Next Visit Focus/Plan Next Note Type Re-Evaluation Next Visit Plan Pt will be s/p L posterior MARIFER ; therefore Re-Eval, treatment for post-op MARIFER, and set goals as appropriate.
--- NOTE | 2019-09-11 12:53 | PT.OTN ---
Current Diagnoses Unilateral primary osteoarthritis, unspecified hip (09/11/19) Physical Therapy Treatment Note PT-OP-A Visit Information Start: 06/07/19 08:11 Freq: Status: Active Protocol: Document 09/11/19 12:53 LRN (Rec: 09/11/19 13:34 LRN [id number]) Out-Patient Physical Therapy Visit Information Visit Information Visit Type Progress Note Visit Start Time 12:53 Visit Stop Time 13:32 Total Visit Minutes 39 Visit Number 2 Evaluation Information Evaluation Date 06/07/19 Precautions Precautions Pt reports hx of R wrist torn ligaments, torn L hamstring, R 5th digit fx 4-5 yrs ago. Chart review indicated Lumbosacral spondylosis & hx of achilles tendon repair. PT-OP-B Current Condition Start: 06/07/19 08:11 Freq: Status: Active Protocol: Document 09/11/19 12:53 LRN (Rec: 09/11/19 13:34 LRN [id number]) Current Condition History of Current Condition Onset Date 09/06/19 Current Complaints Tightness/pain of L hip, limited in walking, leg strength History of Current Condition MARIFER surgery 09/06/19, overnight in hospital. Given home PT ex 's that he has been doing ex's 2x/day. Also walking 1/4 mile. Hip only feels tight. Only uses a cane to do stairs, otherwise stopped using a cane yesterday. Taking Naproxin and baby aspirin and oxycotin. Starting to wean off medications. Developmental History Developmental History Played baseball for 42 yrs, 2- 3 yrs ago was treated in PT for IT-Band dysfunction. Treatment Goals Patient/Caregiver Goals Pt goals: 1) Painfree. 2) Painfree with gait. 3) Greater flexibility in rotation to return to golf. 4 ) Be able to ride a bike. 5) Lateral movement sideways to finish building a fence. 6) Be able to squat to garden and ski. 7) In/out of bed w/o having to use hands. 8) In/ out of chair w/o having to use arms. 9) Walk with minimal side to side sway. Prior Functional Status Baseline Function- ADL's Independent Baseline Function- Mobility Independent Baseline Function- Gait No Assistive device. 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 Current Functional Impairments (Reported) Functional Limitations- ADL's Sit to stand requires use of hands. In/out of bed requires use of hands to lift L leg. Functional Limitations- Mobility/Gait Gait dysfunction, heavy side to side sway. No assistive device needed. Functional Limitations- Recreation/ Can't golf or ride a bike, Hobbies Can't squat to garden or ski, Can't finish project of building a fence. Personal Factors Other Personal Factors That May Effect High pain tolerance with pt Therapy/Recovery tendancy to overdo activities. PT-OP-C Subjective Start: 06/07/19 08:11 Freq: Status: Active Protocol: Document 09/11/19 12:53 LRN (Rec: 09/12/19 12:26 LRN [email or web address]) OP-PT Subjective Patient Comments Patient Comments See current condition above. Patient Questionnaires Lower Extremity Functional Scale LEFS Score 51 (initial was 51) LEFS Impairment 20 to 39% Impaired (Score 48- 62) OP-PT Pain Assessment Location Left Lateral Hip Pain Location Details L hip lateral and anterior Intensity 2 Scale Used Numeric (0 - 10) Description Tightness Pain Aggravating Factors Activity Pain Alleviating Factors Cold,Medication PT-OP-E Functional Tests Start: 06/07/19 08:11 Freq: Status: Active Protocol: Document 09/11/19 12:53 LRN (Rec: 09/12/19 12:26 LRN [email or web address]) Functional Tests Timed Up and Go (TUG) Score 10 (initial was 7) Comments Required use of hands to get up/down from chair TUG Impairment Rating 0% Impaired (Score 10) PT-OP-G Mobility & Gait Start: 06/07/19 08:11 Freq: Status: Active Protocol: Document 09/11/19 12:53 LRN (Rec: 09/12/19 12:26 LRN [email or web address]) OP Gait Assessment Gait Gait Assistance Required: Independent Assistive Devices Assistive Device None Gait Deviations General Gait Pattern Antalgic Factors Limiting Gait Function Factors Limiting Gait Function Decreased Strength,Pain,Poor Balance Comments Gait Comments Heavy lean L in Trendelenburg type gait. Pt was able to demonstrate somewhat normalized gait when moving slowly with concentration on posturing. Stair Climbing Evaluation Comments Stair Climbing Comments Deferred due to fatigue/ discomfort of tightness. PT-OP-J Posture/Palpation/Skin Start: 06/07/19 08:11 Freq: Status: Active Protocol: Document 09/11/19 12:53 LRN (Rec: 09/12/19 12:26 LRN [email or web address]) Palpation Assessment Location L hip Palpation Location L lateral hip, anterior thigh, area of healing scar Palpation Findings Soft Tissue Tightness, Tenderness PT-OP-K Range of Motion Start: 06/07/19 08:11 Freq: Status: Active Protocol: Document 09/11/19 12:53 LRN (Rec: 09/12/19 12:26 LRN [email or web address]) Hip Goniometric Range of Motion Hip Right Passive Hip ROM WFL Yes Left Passive Hip ROM WFL No Testing Position Supine Flexion w/Knee Flexed 70 Abduction 23 PT-OP-M Strength Start: 06/07/19 08:11 Freq: Status: Active Protocol: Document 09/11/19 12:53 LRN (Rec: 09/12/19 12:26 LRN [email or web address]) Hip Strength Hip Manual Muscle Testing Right Reason Not Measured WFL Comments Generally 5/5 Left Flexion (L2) 2- Poor- Abduction 2 Poor Comments AB strength not formally tested due to recent surgery. PT-OP-Q Treatments Start: 06/07/19 08:11 Freq: Status: Active Protocol: Document 09/11/19 12:53 LRN (Rec: 09/12/19 12:26 LRN [email or web address]) Therapeutic Exercises Supine Exercises SLR Supine Exercise Name Assisted SLR Side left Reps/Minutes 3x Comments Poor tolerance even with assist. See self care for discuss of ex tolerance Hip AB Supine Exercise Name Minor assist to start Side left Reps/Minutes 10x Comments Pt had difficulty the last few reps Heel Slides Side left Reps/Minutes 10x Gait Training Gait Activity Stance phase Description Limiting Trendelenburg upper body positioning on L stance. Device Used with & without railing Level of Assistance v. cuing and visual physical cuing Surface level Distance/Duration 3' Treatment Focus Normalize posture with gait Comments Started with side stepping for training of proper upper body posturing, then advancing to forward gait. Self-Care/Home Management Treatment Education Patient Education Home Exercise Program Other Education Discussed precautions of overactivity. Discussed soft tissue response to activity and average appropriate pt activity post- op day 5. PT-OP-T Assessment and Plan Start: 06/07/19 08:11 Freq: Status: Active Protocol: Document 09/11/19 12:53 LRN (Rec: 09/11/19 13:34 LRN [id number]) Physical Therapy Assessment Rehab Potential Rehabilitation Potential Excellent Evaluation Complexity Number of Personal Factors/Comorbidities 1-2 Number of Body Systems Impaired 4 or More Clinical Presentation at Evaluation Evolving Impairments Impairments Activity Tolerance,Balance, Functional Mobility,Gait,Pain, Strength,Transfers Goals Three Impairment Lacks education in L posterior hip precautions. Short Term Goal (STG) Pt will be educated in L posterior hip precautions. STG Duration 06/07/19 (06/07/19: MET GOAL) Computer Aided Design Technician Goal (LTG) Pt will be able to recall L posterior hip precautions and demonstrate appropriate functional movements while adhering to the precautions. LTG Duration 07/20/18 (09/10/19: MET GOAL) Two Impairment Lacks education in post-op transfer technique. Short Term Goal (STG) Pt will be educated in proper post-op transfer technique for supine<->sit and sit<->stand. STG Duration 06/07/19 (06/07/19: MET GOAL) Computer Aided Design Technician Goal (LTG) Pt will demonstrate appropriate post op transfer technique for supine<->sit and sit<->stand, and will be independent and safe with transfers. (09/11/19: Proper sit to stand. Requires use of UE's to lift L) LTG Duration 07/10/18 One Impairment Lacks appropriate self care HEP. Short Term Goal (STG) Pt will be independent in pre- operative hip strengthening ex 's. STG Duration 06/07/19 (06/07/19: MET GOAL) Computer Aided Design Technician Goal (LTG) Pt will be independent in a post-operative self care HEP. LTG Duration 09/05/20 (09/11/19: GOAL MET) Assessment Summary Assessment Pt is post-op day 5 following a L MARIFER surgery on 09/06/19. Pt presents ambulating with a heavy L lateral postural sway and carrying his triangle based single point cane. He has decreased hip strength, decreased transfer ability due to weakness moving his L leg on/off plinth, and pain limiting his tolerance to activity. Per the pt's subjective report he may be doing too much and is causing soft tissue irritation that he notices not as pain, but as tightness from the swelling. The pt reports he is walked 1/ 4 mile 2x/day yesterday (post op day 4). Following the evaluation of 20' walks he reported discomfort in terms of tightness, indicating the pt is being too aggressive with his walking 1/4 miles 2x/ day. The pt appears to have a high pain tolerance and needs reminding of his recent surgical procedure and normal healing times. The pt will benefit from skilled physical therapy to safely progress him with his rehabilitation since he has such a high pain tolerance, to reach the goals above. 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 Physical Therapy Plan Frequency and Duration Frequency of Treatment 2x/Week Plan of Care Start Date 09/11/19 Plan of Care End Date 11/10/19 Therapeutic Interventions Therapeutic Interventions Balance Training,Gait Training ,Home Exercise Program,Manual Therapy,Patient/Caregiver Education,Self-Care/Home Management,Soft Tissue Mobilization,Therapeutic Exercises Next Visit Focus/Plan Next Note Type Treatment Note Next Visit Plan L posterior MARIFER rehab (caution pt has high pain tolerance) Visual check of incision. Progress strengthening L hip Transfer training (in/out of plinth) Gait training Encourage pt not to overwork with exercises.
--- NOTE | 2019-09-11 17:05 | PT.OPPOC ---
Physical, Occupational & Speech Therapy At Located Within [facility] Current Diagnoses Unilateral primary osteoarthritis, unspecified hip (09/11/19) Visit Care Team Role Provider Type Sameer Garcia DO Primary Care Provider Physician Specialty: Family Practice Address: [address] [place] [address], [id number] Email: [email or web address] Kannan Ellis MD Attending Provider Physician Referring Provider Specialty: Orthopedic Surgery Address: [address] [place] [address], [id number] Email: [email or web address] Plan Of Care PT-OP-T Assessment and Plan Start: 06/07/19 08:11 Freq: Status: Active Protocol: Document 09/11/19 12:53 LRN (Rec: 09/11/19 13:34 LRN [id number]) Physical Therapy Assessment Rehab Potential Rehabilitation Potential Excellent Evaluation Complexity Number of Personal Factors/Comorbidities 1-2 Number of Body Systems Impaired 4 or More Clinical Presentation at Evaluation Evolving Impairments Impairments Activity Tolerance,Balance, Functional Mobility,Gait,Pain, Strength,Transfers Goals ROM Impairment Decreased L hip mobility limiting ability to golf and squat Short Term Goal (STG) Pt will be educated in proper squat mechanics appropriate for his L posterior MARIFER, with discussion of clearance by physician prior to performing squatting. Pt will be educated in modifications to squatting to adhere to MARIFER posteior hip precautions. STG Duration 10/09/19 Campus Chaplain Goal (LTG) When L MARIFER restrictions are lifted (~ 6-8 weeks) the pt will be able to demonstrate appropriate self care stretches in improve hip ER/IR mobility to resume golf play. LTG Duration 11/10/19 Decreased transfer ability Impairment Transfers sit<->stand and in/ out of bed using hands to assist Short Term Goal (STG) Pt will be able to transfer in /out of bed/plinth without use of UE's. STG Duration 09/27/19 Campus Chaplain Goal (LTG) Pt will be able to transfer sit <-> stand without use of UE's. 10/19/19 LTG Duration 10/19/19 Pain Impairment L hip pain with gait rated 2/ 10. Intermediate Goal (LTG) Pt will be painfree with gait and will demonstrate normal gait mechanics. LTG Duration 11/10/19 Three Impairment Lacks education in L posterior hip precautions. Short Term Goal (STG) Pt will be educated in L posterior hip precautions. STG Duration 06/07/19 (06/07/19: MET GOAL) Intermediate Goal (LTG) Pt will be able to recall L posterior hip precautions and demonstrate appropriate functional movements while adhering to the precautions. LTG Duration 07/20/18 (09/10/19: MET GOAL) Two Impairment Lacks education in post-op transfer technique. Short Term Goal (STG) Pt will be educated in proper post-op transfer technique for supine<->sit and sit<->stand. STG Duration 06/07/19 (06/07/19: MET GOAL) Campus Chaplain Goal (LTG) Pt will demonstrate appropriate post op transfer technique for supine<->sit and sit<->stand, and will be independent and safe with transfers. (09/11/19: Proper sit to stand. Requires use of UE's to lift L) LTG Duration 07/10/18 One Impairment Lacks appropriate self care HEP. Short Term Goal (STG) Pt will be independent in pre- operative hip strengthening ex 's. STG Duration 06/07/19 (06/07/19: MET GOAL) Campus Chaplain Goal (LTG) Pt will be independent in a post-operative self care HEP. LTG Duration 09/05/20 (09/11/19: Progressing ) Assessment Summary Assessment Pt is post-op day 5 following a L MARIFER surgery on 09/06/19. Pt presents ambulating with a heavy L lateral postural sway and carrying his triangle based single point cane. He has decreased hip strength, decreased transfer ability due to weakness moving his L leg on/off plinth, and pain limiting his tolerance to activity. Per the pt's subjective report he may be doing too much and is causing soft tissue irritation that he notices not as pain, but as tightness from the swelling. The pt reports he is walked 1/ 4 mile 2x/day yesterday (post op day 4). Following the evaluation of 20' walks he reported discomfort in terms of tightness, indicating the pt is being too aggressive with his walking 1/4 miles 2x/ day. The pt appears to have a high pain tolerance and needs reminding of his recent surgical procedure and normal healing times. The pt will benefit from skilled physical therapy to safely progress him with his rehabilitation since he has such a high pain tolerance, to reach the goals above. The pt will need your encouragement to be slow progress towards his ultimate senior care goals of bicycling and golfing, since he has such a high pain tolerance. Physical Therapy Plan Frequency and Duration Frequency of Treatment 2x/Week Plan of Care Start Date 09/11/19 Plan of Care End Date 11/10/19 Therapeutic Interventions Therapeutic Interventions Balance Training,Gait Training ,Home Exercise Program,Manual Therapy,Patient/Caregiver Education,Self-Care/Home Management,Soft Tissue Mobilization,Therapeutic Exercises Next Visit Focus/Plan Next Note Type Treatment Note Next Visit Plan L posterior MARIFER rehab (caution pt has high pain tolerance) Visual check of incision. Progress strengthening L hip Transfer training (in/out of plinth) Gait training Encourage pt not to overwork with exercises. Plan of Care Dates Plan of Care Start Date 09/11/19 Plan of Care End Date 11/10/19 Electronically Signed by: Jolene Medina, PT 09/12/19 1505 Please Sign and Return: I have reviewed this Plan of Care and certify that the skilled therapy services above are required to meet the patient?s needs. Physician Signature Date Printed Name and Credentials Clinical Instructor Signature Printed Name and Credentials
--- NOTE | 2019-09-11 17:05 | PT.OTN ---
Current Diagnoses Unilateral primary osteoarthritis, unspecified hip (09/11/19) Physical Therapy Treatment Note PT-OP-A Visit Information Start: 06/07/19 08:11 Freq: Status: Active Protocol: Document 09/11/19 12:53 LRN (Rec: 09/11/19 13:34 LRN [id number]) Out-Patient Physical Therapy Visit Information Visit Information Visit Type Progress Note Visit Start Time 12:53 Visit Stop Time 13:32 Total Visit Minutes 39 Visit Number 2 Evaluation Information Evaluation Date 06/07/19 Precautions Precautions Pt reports hx of R wrist torn ligaments, torn L hamstring, R 5th digit fx 4-5 yrs ago. Chart review indicated Lumbosacral spondylosis & hx of achilles tendon repair. PT-OP-B Current Condition Start: 06/07/19 08:11 Freq: Status: Active Protocol: Document 09/11/19 12:53 LRN (Rec: 09/11/19 13:34 LRN [id number]) Current Condition History of Current Condition Onset Date 09/06/19 Current Complaints Tightness/pain of L hip, limited in walking, leg strength History of Current Condition MARIFER surgery 09/06/19, overnight in hospital. Given home PT ex 's that he has been doing ex's 2x/day. Also walking 1/4 mile. Hip only feels tight. Only uses a cane to do stairs, otherwise stopped using a cane yesterday. Taking Naproxin and baby aspirin and oxycotin. Starting to wean off medications. Developmental History Developmental History Played baseball for 42 yrs, 2- 3 yrs ago was treated in PT for IT-Band dysfunction. Treatment Goals Patient/Caregiver Goals Pt goals: 1) Painfree. 2) Painfree with gait. 3) Greater flexibility in rotation to return to golf. 4 ) Be able to ride a bike. 5) Lateral movement sideways to finish building a fence. 6) Be able to squat to garden and ski. 7) In/out of bed w/o having to use hands. 8) In/ out of chair w/o having to use arms. 9) Walk with minimal side to side sway. Prior Functional Status Baseline Function- ADL's Independent Baseline Function- Mobility Independent Baseline Function- Gait No Assistive device. 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 Current Functional Impairments (Reported) Functional Limitations- ADL's Sit to stand requires use of hands. In/out of bed requires use of hands to lift L leg. Functional Limitations- Mobility/Gait Gait dysfunction, heavy side to side sway. No assistive device needed. Functional Limitations- Recreation/ Can't golf or ride a bike, Hobbies Can't squat to garden or ski, Can't finish project of building a fence. Personal Factors Other Personal Factors That May Effect High pain tolerance with pt Therapy/Recovery tendancy to overdo activities. PT-OP-C Subjective Start: 06/07/19 08:11 Freq: Status: Active Protocol: Document 09/11/19 12:53 LRN (Rec: 09/12/19 12:26 LRN [email or web address]) OP-PT Subjective Patient Comments Patient Comments See current condition above. Patient Questionnaires Lower Extremity Functional Scale LEFS Score 51 (initial was 51) LEFS Impairment 20 to 39% Impaired (Score 48- 62) OP-PT Pain Assessment Location Left Lateral Hip Pain Location Details L hip lateral and anterior Intensity 2 Scale Used Numeric (0 - 10) Description Tightness Pain Aggravating Factors Activity Pain Alleviating Factors Cold,Medication PT-OP-E Functional Tests Start: 06/07/19 08:11 Freq: Status: Active Protocol: Document 09/11/19 12:53 LRN (Rec: 09/12/19 12:26 LRN [email or web address]) Functional Tests Timed Up and Go (TUG) Score 10 (initial was 7) Comments Required use of hands to get up/down from chair TUG Impairment Rating 0% Impaired (Score 10) PT-OP-G Mobility & Gait Start: 06/07/19 08:11 Freq: Status: Active Protocol: Document 09/11/19 12:53 LRN (Rec: 09/12/19 12:26 LRN [email or web address]) OP Gait Assessment Gait Gait Assistance Required: Independent Assistive Devices Assistive Device None Gait Deviations General Gait Pattern Antalgic Factors Limiting Gait Function Factors Limiting Gait Function Decreased Strength,Pain,Poor Balance Comments Gait Comments Heavy lean L in Trendelenburg type gait. Pt was able to demonstrate somewhat normalized gait when moving slowly with concentration on posturing. Stair Climbing Evaluation Comments Stair Climbing Comments Deferred due to fatigue/ discomfort of tightness. PT-OP-J Posture/Palpation/Skin Start: 06/07/19 08:11 Freq: Status: Active Protocol: Document 09/11/19 12:53 LRN (Rec: 09/12/19 12:26 LRN [email or web address]) Palpation Assessment Location L hip Palpation Location L lateral hip, anterior thigh, area of healing scar Palpation Findings Soft Tissue Tightness, Tenderness PT-OP-K Range of Motion Start: 06/07/19 08:11 Freq: Status: Active Protocol: Document 09/11/19 12:53 LRN (Rec: 09/12/19 12:26 LRN [email or web address]) Hip Goniometric Range of Motion Hip Right Passive Hip ROM WFL Yes Left Passive Hip ROM WFL No Testing Position Supine Flexion w/Knee Flexed 70 Abduction 23 PT-OP-M Strength Start: 06/07/19 08:11 Freq: Status: Active Protocol: Document 09/11/19 12:53 LRN (Rec: 09/12/19 12:26 LRN [email or web address]) Hip Strength Hip Manual Muscle Testing Right Reason Not Measured WFL Comments Generally 5/5 Left Flexion (L2) 2- Poor- Abduction 2 Poor Comments AB strength not formally tested due to recent surgery. PT-OP-Q Treatments Start: 06/07/19 08:11 Freq: Status: Active Protocol: Document 09/11/19 12:53 LRN (Rec: 09/12/19 12:26 LRN [email or web address]) Therapeutic Exercises Supine Exercises SLR Supine Exercise Name Assisted SLR Side left Reps/Minutes 3x Comments Poor tolerance even with assist. See self care for discuss of ex tolerance Hip AB Supine Exercise Name Minor assist to start Side left Reps/Minutes 10x Comments Pt had difficulty the last few reps Heel Slides Side left Reps/Minutes 10x Gait Training Gait Activity Stance phase Description Limiting Trendelenburg upper body positioning on L stance. Device Used with & without railing Level of Assistance v. cuing and visual physical cuing Surface level Distance/Duration 3' Treatment Focus Normalize posture with gait Comments Started with side stepping for training of proper upper body posturing, then advancing to forward gait. Self-Care/Home Management Treatment Education Patient Education Home Exercise Program Other Education Discussed precautions of overactivity. Discussed soft tissue response to activity and average appropriate pt activity post- op day 5. PT-OP-T Assessment and Plan Start: 06/07/19 08:11 Freq: Status: Active Protocol: Document 09/11/19 12:53 LRN (Rec: 09/11/19 13:34 LRN [id number]) Physical Therapy Assessment Rehab Potential Rehabilitation Potential Excellent Evaluation Complexity Number of Personal Factors/Comorbidities 1-2 Number of Body Systems Impaired 4 or More Clinical Presentation at Evaluation Evolving Impairments Impairments Activity Tolerance,Balance, Functional Mobility,Gait,Pain, Strength,Transfers Goals ROM Impairment Decreased L hip mobility limiting ability to golf and squat Short Term Goal (STG) Pt will be educated in proper squat mechanics appropriate for his L posterior MARIFER, with discussion of clearance by physician prior to performing squatting. Pt will be educated in modifications to squatting to adhere to MARIFER posteior hip precautions. STG Duration 10/09/19 Long-Term Goal (LTG) When L MARIFER restrictions are lifted (~ 6-8 weeks) the pt will be able to demonstrate appropriate self care stretches in improve hip ER/IR mobility to resume golf play. LTG Duration 11/10/19 Decreased transfer ability Impairment Transfers sit<->stand and in/ out of bed using hands to assist Short Term Goal (STG) Pt will be able to transfer in /out of bed/plinth without use of UE's. STG Duration 09/27/19 Ironer Machine Goal (LTG) Pt will be able to transfer sit <-> stand without use of UE's. 10/19/19 LTG Duration 10/19/19 Pain Impairment L hip pain with gait rated 2/ 10. Long-Term Goal (LTG) Pt will be painfree with gait and will demonstrate normal gait mechanics. LTG Duration 11/10/19 Three Impairment Lacks education in L posterior hip precautions. Short Term Goal (STG) Pt will be educated in L posterior hip precautions. STG Duration 06/07/19 (06/07/19: MET GOAL) Ironer Machine Goal (LTG) Pt will be able to recall L posterior hip precautions and demonstrate appropriate functional movements while adhering to the precautions. LTG Duration 07/20/18 (09/10/19: MET GOAL) Two Impairment Lacks education in post-op transfer technique. Short Term Goal (STG) Pt will be educated in proper post-op transfer technique for supine<->sit and sit<->stand. STG Duration 06/07/19 (06/07/19: MET GOAL) Ironer Machine Goal (LTG) Pt will demonstrate appropriate post op transfer technique for supine<->sit and sit<->stand, and will be independent and safe with transfers. (09/11/19: Proper sit to stand. Requires use of UE's to lift L) LTG Duration 07/10/18 One Impairment Lacks appropriate self care HEP. Short Term Goal (STG) Pt will be independent in pre- operative hip strengthening ex 's. STG Duration 06/07/19 (06/07/19: MET GOAL) Ironer Machine Goal (LTG) Pt will be independent in a post-operative self care HEP. LTG Duration 09/05/20 (09/11/19: Progressing ) Assessment Summary Assessment Pt is post-op day 5 following a L MARIFER surgery on 09/06/19. Pt presents ambulating with a heavy L lateral postural sway and carrying his triangle based single point cane. He has decreased hip strength, decreased transfer ability due to weakness moving his L leg on/off plinth, and pain limiting his tolerance to activity. Per the pt's subjective report he may be doing too much and is causing soft tissue irritation that he notices not as pain, but as tightness from the swelling. The pt reports he is walked 1/ 4 mile 2x/day yesterday (post op day 4). Following the evaluation of 20' walks he reported discomfort in terms of tightness, indicating the pt is being too aggressive with his walking 1/4 miles 2x/ day. The pt appears to have a high pain tolerance and needs reminding of his recent surgical procedure and normal healing times. The pt will benefit from skilled physical therapy to safely progress him with his rehabilitation since he has such a high pain tolerance, to reach the goals above. The pt will need your encouragement to be slow progress towards his ultimate fpc goals of bicycling and golfing, since he has such a high pain tolerance. Physical Therapy Plan Frequency and Duration Frequency of Treatment 2x/Week Plan of Care Start Date 09/11/19 Plan of Care End Date 11/10/19 Therapeutic Interventions Therapeutic Interventions Balance Training,Gait Training ,Home Exercise Program,Manual Therapy,Patient/Caregiver Education,Self-Care/Home Management,Soft Tissue Mobilization,Therapeutic Exercises Next Visit Focus/Plan Next Note Type Treatment Note Next Visit Plan L posterior MARIFER rehab (caution pt has high pain tolerance) Visual check of incision. Progress strengthening L hip Transfer training (in/out of plinth) Gait training Encourage pt not to overwork with exercises.
--- NOTE | 2019-09-18 16:23 | PT.OTN ---
Current Diagnoses Unilateral primary osteoarthritis, unspecified hip (09/18/19) Physical Therapy Treatment Note PT-OP-A Visit Information Start: 06/07/19 08:11 Freq: Status: Active Protocol: Document 09/18/19 15:20 LRN (Rec: 09/18/19 16:22 LRN [id number]) Out-Patient Physical Therapy Visit Information Visit Information Visit Type Treatment Note Visit Start Time 15:15 Visit Stop Time 16:55 Total Visit Minutes 40 Visit Number 3 Evaluation Information Evaluation Date 06/07/19 Precautions Precautions Pt reports hx of R wrist torn ligaments, torn L hamstring, R 5th digit fx 4-5 yrs ago. Chart review indicated Lumbosacral spondylosis & hx of achilles tendon repair. PT-OP-B Current Condition Start: 06/07/19 08:11 Freq: Status: Active Protocol: Document 09/11/19 12:53 LRN (Rec: 09/11/19 13:34 LRN [id number]) Current Condition History of Current Condition Onset Date 09/06/19 Current Complaints Tightness/pain of L hip, limited in walking, leg strength History of Current Condition MARIFER surgery 09/06/19, overnight in hospital. Given home PT ex 's that he has been doing ex's 2x/day. Also walking 1/4 mile. Hip only feels tight. Only uses a cane to do stairs, otherwise stopped using a cane yesterday. Taking Naproxin and baby aspirin and oxycotin. Starting to wean off medications. Developmental History Developmental History Played baseball for 42 yrs, 2- 3 yrs ago was treated in PT for IT-Band dysfunction. Treatment Goals Patient/Caregiver Goals Pt goals: 1) Painfree. 2) Painfree with gait. 3) Greater flexibility in rotation to return to golf. 4 ) Be able to ride a bike. 5) Lateral movement sideways to finish building a fence. 6) Be able to squat to garden and ski. 7) In/out of bed w/o having to use hands. 8) In/ out of chair w/o having to use arms. 9) Walk with minimal side to side sway. Prior Functional Status Baseline Function- ADL's Independent Baseline Function- Mobility Independent Baseline Function- Gait No Assistive device. 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 Current Functional Impairments (Reported) Functional Limitations- ADL's Sit to stand requires use of hands. In/out of bed requires use of hands to lift L leg. Functional Limitations- Mobility/Gait Gait dysfunction, heavy side to side sway. No assistive device needed. Functional Limitations- Recreation/ Can't golf or ride a bike, Hobbies Can't squat to garden or ski, Can't finish project of building a fence. Personal Factors Other Personal Factors That May Effect High pain tolerance with pt Therapy/Recovery tendancy to overdo activities. PT-OP-C Subjective Start: 06/07/19 08:11 Freq: Status: Active Protocol: Document 09/18/19 15:20 LRN (Rec: 09/18/19 16:22 LRN [id number]) OP-PT Subjective Patient Comments Patient Comments States he saw MD yesterday and had pad removed and replaced with steri-strips. Walking short distances working on gait. States he was told he has no restrictions. PT-OP-E Functional Tests Start: 06/07/19 08:11 Freq: Status: Active Protocol: Document 09/11/19 12:53 LRN (Rec: 09/12/19 12:26 LRN [email or web address]) Functional Tests Timed Up and Go (TUG) Score 10 (initial was 7) Comments Required use of hands to get up/down from chair TUG Impairment Rating 0% Impaired (Score 10) PT-OP-G Mobility & Gait Start: 06/07/19 08:11 Freq: Status: Active Protocol: Document 09/11/19 12:53 LRN (Rec: 09/12/19 12:26 LRN [email or web address]) OP Gait Assessment Gait Gait Assistance Required: Independent Assistive Devices Assistive Device None Gait Deviations General Gait Pattern Antalgic Factors Limiting Gait Function Factors Limiting Gait Function Decreased Strength,Pain,Poor Balance Comments Gait Comments Heavy lean L in Trendelenburg type gait. Pt was able to demonstrate somewhat normalized gait when moving slowly with concentration on posturing. Stair Climbing Evaluation Comments Stair Climbing Comments Deferred due to fatigue/ discomfort of tightness. PT-OP-J Posture/Palpation/Skin Start: 06/07/19 08:11 Freq: Status: Active Protocol: Document 09/11/19 12:53 LRN (Rec: 09/12/19 12:26 LRN [email or web address]) Palpation Assessment Location L hip Palpation Location L lateral hip, anterior thigh, area of healing scar Palpation Findings Soft Tissue Tightness, Tenderness PT-OP-K Range of Motion Start: 06/07/19 08:11 Freq: Status: Active Protocol: Document 09/11/19 12:53 LRN (Rec: 09/12/19 12:26 LRN [email or web address]) Hip Goniometric Range of Motion Hip Right Passive Hip ROM WFL Yes Left Passive Hip ROM WFL No Testing Position Supine Flexion w/Knee Flexed 70 Abduction 23 PT-OP-M Strength Start: 06/07/19 08:11 Freq: Status: Active Protocol: Document 09/11/19 12:53 LRN (Rec: 09/12/19 12:26 LRN [email or web address]) Hip Strength Hip Manual Muscle Testing Right Reason Not Measured WFL Comments Generally 5/5 Left Flexion (L2) 2- Poor- Abduction 2 Poor Comments AB strength not formally tested due to recent surgery. PT-OP-Q Treatments Start: 06/07/19 08:11 Freq: Status: Active Protocol: Document 09/18/19 15:20 LRN (Rec: 09/18/19 16:22 LRN [id number]) Therapeutic Exercises Supine Exercises SLR Supine Exercise Name Assisted Reverse SLR Side left Reps/Minutes 10x, 7x 2 Comments Good tolerance with assist. Quads burning discomfort starting rep 6. Hip AB Supine Exercise Name Hip AB Side bilateral Reps/Minutes 10 x 3 Comments v. cuing to prevent LE ER at end range of movement. Heel Slides Supine Exercise Name Heel slides Side left Equipment Used 0, Lev 1 Lev 2 T-Band Reps/Minutes 10x each Sidelying Exercises Hip AB Sidelying Exercise Name Hip AB Side left Reps/Minutes 10x Comments V. & phys cuing to start for proper leg movement. Standing Exercises Step ups Standing Exercise Name 4 Step ups Reps/Minutes Alternating lead foot starting L; 10x 3 total Hip AB Standing Exercise Name Hip AB Side bilateral Reps/Minutes 8 x Comments inimal v cuing for proper foot positioning Gait Training Gait Activity Stance phase Description Limiting Trendelenburg upper body positioning on L stance. Device Used without railing Level of Assistance v. cuing and visual physical cuing Surface level Distance/Duration 8' Treatment Focus Normalize posture with gait Comments Started with side stepping for training of proper upper body posturing, then advancing to forward gait. Neuro Re-Education Treatment Balance Activities SLS Details SLS Surface Firm Equipment // bars Reps/Duration 4' Comments SLS/EO: L 13 secs, R 6 sec's. Soft surface Details EO/EC: static standing; feet together standing; tandem standing Surface Blue & Patel cushion Equipment // bars Reps/Duration 10' Rocker board Details Ankle DF/PF, Side to side Surface Rocker board Equipment // bars Reps/Duration 10 x 3 Comments Progressing from hand hold on // Bars to no hold. Self-Care/Home Management Treatment Education Patient Education Home Exercise Program Other Education Issued & reviewed written I/S for home exercises as of today . Discussed that pt is to talk to MD regarding status of squatting. PT-OP-T Assessment and Plan Start: 06/07/19 08:11 Freq: Status: Active Protocol: Document 09/18/19 15:20 LRN (Rec: 09/18/19 16:22 LRN [id number]) Physical Therapy Assessment Goals ROM Impairment Decreased L hip mobility limiting ability to golf and squat Short Term Goal (STG) Pt will be educated in proper squat mechanics appropriate for his L posterior MARIFER, with discussion of clearance by physician prior to performing squatting. Pt will be educated in modifications to squatting to adhere to MARIFER posteior hip precautions. STG Duration 10/09/19 Senior Care Goal (LTG) When L MARIFER restrictions are lifted (~ 6-8 weeks) the pt will be able to demonstrate appropriate self care stretches in improve hip ER/IR mobility to resume golf play. LTG Duration 11/10/19 Decreased transfer ability Impairment Transfers sit<->stand and in/ out of bed using hands to assist Short Term Goal (STG) Pt will be able to transfer in /out of bed/plinth without use of UE's. STG Duration (09/18/19: GOAL MET) Digital Program Manager Goal (LTG) Pt will be able to transfer sit <-> stand without use of UE's. 10/19/19 LTG Duration 10/19/19 Pain Impairment L hip pain with gait rated 2/ 10. Digital Program Manager Goal (LTG) Pt will be painfree with gait and will demonstrate normal gait mechanics. LTG Duration 11/10/19 (09/18/19: Progressing) Two Impairment Lacks education in post-op transfer technique. Short Term Goal (STG) Pt will be educated in proper post-op transfer technique for supine<->sit and sit<->stand. STG Duration 06/07/19 (06/07/19: MET GOAL) Digital Program Manager Goal (LTG) Pt will demonstrate appropriate post op transfer technique for supine<->sit and sit<->stand, and will be independent and safe with transfers. (09/11/19: Proper sit to stand. Requires use of UE's to lift L) LTG Duration 07/10/18 (09/17/29: GOAL MET) One Impairment Lacks appropriate self care HEP. Short Term Goal (STG) Pt will be independent in pre- operative hip strengthening ex 's. STG Duration 06/07/19 (06/07/19: MET GOAL) Senior Care Goal (LTG) Pt will be independent in a post-operative self care HEP. LTG Duration 09/05/20 (09/18/19: Progressing) Assessment Summary Assessment Pt incision looks clean and healing with very little redness or increase temperature. Pt is able to transfer on/off plinth without difficulty. Physical Therapy Plan Next Visit Focus/Plan Next Note Type Treatment Note Next Visit Plan L posterior MARIFER rehab (caution pt has high pain tolerance). Progress strengthening L hip ( flex > extensors; CKC-Quads) Gait training AND Squat Mechanics training. Balance training on Shuttle Recovery. Stretches for donning/doffing shoes and socks; and for return to golf.
--- NOTE | 2019-09-25 16:25 | PT.OTN ---
Current Diagnoses Unilateral primary osteoarthritis, unspecified hip (09/25/19) Physical Therapy Treatment Note PT-OP-A Visit Information Start: 06/07/19 08:11 Freq: Status: Active Protocol: Document 09/25/19 15:08 LRN (Rec: 09/25/19 16:22 LRN [id number]) Out-Patient Physical Therapy Visit Information Visit Information Visit Type Treatment Note Visit Start Time 15:08 Visit Stop Time 15:52 Total Visit Minutes 44 Visit Number 4 Evaluation Information Evaluation Date 06/07/19 Precautions Precautions Pt reports hx of R wrist torn ligaments, torn L hamstring, R 5th digit fx 4-5 yrs ago. Chart review indicated Lumbosacral spondylosis & hx of achilles tendon repair. PT-OP-B Current Condition Start: 06/07/19 08:11 Freq: Status: Active Protocol: Document 09/11/19 12:53 LRN (Rec: 09/11/19 13:34 LRN [id number]) Current Condition History of Current Condition Onset Date 09/06/19 Current Complaints Tightness/pain of L hip, limited in walking, leg strength History of Current Condition MARIFER surgery 09/06/19, overnight in hospital. Given home PT ex 's that he has been doing ex's 2x/day. Also walking 1/4 mile. Hip only feels tight. Only uses a cane to do stairs, otherwise stopped using a cane yesterday. Taking Naproxin and baby aspirin and oxycotin. Starting to wean off medications. Developmental History Developmental History Played baseball for 42 yrs, 2- 3 yrs ago was treated in PT for IT-Band dysfunction. Treatment Goals Patient/Caregiver Goals Pt goals: 1) Painfree. 2) Painfree with gait. 3) Greater flexibility in rotation to return to golf. 4 ) Be able to ride a bike. 5) Lateral movement sideways to finish building a fence. 6) Be able to squat to garden and ski. 7) In/out of bed w/o having to use hands. 8) In/ out of chair w/o having to use arms. 9) Walk with minimal side to side sway. Prior Functional Status Baseline Function- ADL's Independent Baseline Function- Mobility Independent Baseline Function- Gait No Assistive device. 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 Current Functional Impairments (Reported) Functional Limitations- ADL's Sit to stand requires use of hands. In/out of bed requires use of hands to lift L leg. Functional Limitations- Mobility/Gait Gait dysfunction, heavy side to side sway. No assistive device needed. Functional Limitations- Recreation/ Can't golf or ride a bike, Hobbies Can't squat to garden or ski, Can't finish project of building a fence. Personal Factors Other Personal Factors That May Effect High pain tolerance with pt Therapy/Recovery tendancy to overdo activities. PT-OP-C Subjective Start: 06/07/19 08:11 Freq: Status: Active Protocol: Document 09/25/19 15:08 LRN (Rec: 09/25/19 16:22 LRN [id number]) OP-PT Subjective Patient Comments Patient Comments States the Dr told him he could cross his L ankle over the knee. He can now put his slip on shoes and socks on independently. His pain and edema is a lot less. PT-OP-D Balance Start: 06/07/19 08:11 Freq: Status: Active Protocol: Document 09/25/19 15:08 LRN (Rec: 09/25/19 16:22 LRN [id number]) Balance Tests Single Limb Standing Single Limb- Right 60+ Single Limb- Left 60+ Tandem Tandem Standing 60 L & R foot behind, hands across chest. PT-OP-E Functional Tests Start: 06/07/19 08:11 Freq: Status: Active Protocol: Document 09/11/19 12:53 LRN (Rec: 09/12/19 12:26 LRN [email or web address]) Functional Tests Timed Up and Go (TUG) Score 10 (initial was 7) Comments Required use of hands to get up/down from chair TUG Impairment Rating 0% Impaired (Score 10) PT-OP-G Mobility & Gait Start: 06/07/19 08:11 Freq: Status: Active Protocol: Document 09/25/19 15:08 LRN (Rec: 09/25/19 16:22 LRN [id number]) Stair Climbing Evaluation Technique/Endurance Stair Climbing Direction Ascend and Descend Stair Climbing Technique Step Over Step Number of Steps Climbed 4 Stair Climbing Set # Repetitions (reps) 1 PT-OP-J Posture/Palpation/Skin Start: 06/07/19 08:11 Freq: Status: Active Protocol: Document 09/11/19 12:53 LRN (Rec: 09/12/19 12:26 LRN [email or web address]) Palpation Assessment Location L hip Palpation Location L lateral hip, anterior thigh, area of healing scar Palpation Findings Soft Tissue Tightness, Tenderness PT-OP-K Range of Motion Start: 06/07/19 08:11 Freq: Status: Active Protocol: Document 09/11/19 12:53 LRN (Rec: 09/12/19 12:26 LRN [email or web address]) Hip Goniometric Range of Motion Hip Right Passive Hip ROM WFL Yes Left Passive Hip ROM WFL No Testing Position Supine Flexion w/Knee Flexed 70 Abduction 23 PT-OP-M Strength Start: 06/07/19 08:11 Freq: Status: Active Protocol: Document 09/11/19 12:53 LRN (Rec: 09/12/19 12:26 LRN [email or web address]) Hip Strength Hip Manual Muscle Testing Right Reason Not Measured WFL Comments Generally 5/5 Left Flexion (L2) 2- Poor- Abduction 2 Poor Comments AB strength not formally tested due to recent surgery. PT-OP-Q Treatments Start: 06/07/19 08:11 Freq: Status: Active Protocol: Document 09/25/19 15:08 LRN (Rec: 09/25/19 16:22 LRN [id number]) Gym Equipment Shuttle Rebound Blue Exercise Details Reaching fwd, squat, rotation (golf swing) Reps/Duration 13' Comments Feet wide apart. Blue supports Therapeutic Exercises Sidelying Exercises Hip AB Sidelying Exercise Name Hip AB Side left Reps/Minutes 10 x 3 Sitting Exercises Hip ER stretch Sitting Exercise Name Hip ER stretch f/b active hip ER Side left Standing Exercises SLS Standing Exercise Name SLS Side bilateral Reps/Minutes 60 x 2 Step ups Standing Exercise Name Stairs up/down Reps/Minutes Alternating feet. Hip AB Standing Exercise Name Squat walk Side bilateral Reps/Minutes 10' x 4 Neuro Re-Education Treatment Balance Activities Soft surface Details EO>EC: static standing; feet together standing; tandem standing Surface Patel cushion Equipment // bars Reps/Duration 10' Comments Feet together, Tandem L behind, hands out to sides & hands across chest. Tandem R behind: hands out to sides & hands across chest. Self-Care/Home Management Treatment Education Patient Education Body Mechanics Other Education Pt educated in proper posturing for safe removal of socks/shoes and for squatting. PT-OP-T Assessment and Plan Start: 06/07/19 08:11 Freq: Status: Active Protocol: Document 09/25/19 15:08 LRN (Rec: 09/25/19 16:22 LRN [id number]) Physical Therapy Assessment Goals ROM Impairment Decreased L hip mobility limiting ability to golf and squat Short Term Goal (STG) Pt will be educated in proper squat mechanics appropriate for his L posterior MARIFER, with discussion of clearance by physician prior to performing squatting. Pt will be educated in modifications to squatting to adhere to MARIFER posteior hip precautions. STG Duration 10/09/19 (09/25/19: GOAL MET) [facility] Goal (LTG) When L MARIFER restrictions are lifted (~ 6-8 weeks) the pt will be able to demonstrate appropriate self care stretches in improve hip ER/IR mobility to resume golf play. LTG Duration 11/10/19 Decreased transfer ability Impairment Transfers sit<->stand and in/ out of bed using hands to assist Short Term Goal (STG) Pt will be able to transfer in /out of bed/plinth without use of UE's. STG Duration (09/18/19: GOAL MET) [facility] Goal (LTG) Pt will be able to transfer sit <-> stand without use of UE's. 10/19/19 LTG Duration 10/19/19 Pain Impairment L hip pain with gait rated 2/ 10. Service Tech/Welder Goal (LTG) Pt will be painfree with gait and will demonstrate normal gait mechanics. LTG Duration 11/10/19 (09/18/19: Progressing) Two Impairment Lacks education in post-op transfer technique. Short Term Goal (STG) Pt will be educated in proper post-op transfer technique for supine<->sit and sit<->stand. STG Duration 06/07/19 (06/07/19: GOAL MET) Service Tech/Welder Goal (LTG) Pt will demonstrate appropriate post op transfer technique for supine<->sit and sit<->stand, and will be independent and safe with transfers. (09/11/19: Proper sit to stand. Requires use of UE's to lift L) LTG Duration 07/10/18 (09/17/29: GOAL MET) One Impairment Lacks appropriate self care HEP. Short Term Goal (STG) Pt will be independent in pre- operative hip strengthening ex 's. STG Duration 06/07/19 (06/07/19: MET GOAL) Service Tech/Welder Goal (LTG) Pt will be independent in a post-operative self care HEP. LTG Duration 09/05/20 (09/18/19: Progressing) Progress Towards Goals Progress Towards Goals Progressing Toward Goals Progress Comments GOAL 1: STG: MET LTG: PROGRESSING GOAL 2: STG & LTG: MET GOAL PAIN: LTG: PARTIALLY MET . Pt showed normal gait mechanics immediately following therapy training. Pt demonstrates an antalgic gait. GOAL DECR TRANSFERS: STG: MET LTG: Progressing toward indep transfers without use of UE's . GOAL ROM: STG: MET. LTG: Pt under movement precautions; therefore limited in golf swing and hip IR. Assessment Summary Assessment Pt is 2.5 weeks s/p L MARIFER (09/05). Pt able to demonstrates normal SLS (60+ sec's) bilaterally. He is transferring sit<>sup independently, not sit<>stand due to movement precautions. He demonstrates an antalgic gait out of habit, but post therapy is able to ambulate without a limp. 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 Physical Therapy Plan Frequency and Duration Frequency of Treatment 2x/Week Plan of Care Start Date 09/11/19 Plan of Care End Date 11/10/19 Next Visit Focus/Plan Next Note Type Treatment Note Next Visit Plan Expect DC in 1 week with pt to progress towards LTGs independently with self jail program. L posterior MARIFER rehab (caution pt has high pain tolerance). Progress strengthening L hip & issue HEP (flex > extensors; CKC-Quads) Gait training as needed. Stretches for donning/doffing shoes and socks; and for return to golf.
--- NOTE | 2019-10-02 15:59 | PT.OTN ---
Current Diagnoses Unilateral primary osteoarthritis, unspecified hip (10/02/19) Physical Therapy Treatment Note PT-OP-A Visit Information Start: 06/07/19 08:11 Freq: Status: Active Protocol: Document 10/02/19 15:01 LRN (Rec: 10/02/19 15:57 LRN [id number]) Out-Patient Physical Therapy Visit Information Visit Information Visit Type Treatment Note Visit Start Time 15:01 Visit Stop Time 15:39 Total Visit Minutes 38 Visit Number 5 Evaluation Information Evaluation Date 06/07/19 Precautions Precautions Pt reports hx of R wrist torn ligaments, torn L hamstring, R 5th digit fx 4-5 yrs ago. Chart review indicated Lumbosacral spondylosis & hx of achilles tendon repair. PT-OP-B Current Condition Start: 06/07/19 08:11 Freq: Status: Active Protocol: Document 09/11/19 12:53 LRN (Rec: 09/11/19 13:34 LRN [id number]) Current Condition History of Current Condition Onset Date 09/06/19 Current Complaints Tightness/pain of L hip, limited in walking, leg strength History of Current Condition MARIFER surgery 09/06/19, overnight in hospital. Given home PT ex 's that he has been doing ex's 2x/day. Also walking 1/4 mile. Hip only feels tight. Only uses a cane to do stairs, otherwise stopped using a cane yesterday. Taking Naproxin and baby aspirin and oxycotin. Starting to wean off medications. Developmental History Developmental History Played baseball for 42 yrs, 2- 3 yrs ago was treated in PT for IT-Band dysfunction. Treatment Goals Patient/Caregiver Goals Pt goals: 1) Painfree. 2) Painfree with gait. 3) Greater flexibility in rotation to return to golf. 4 ) Be able to ride a bike. 5) Lateral movement sideways to finish building a fence. 6) Be able to squat to garden and ski. 7) In/out of bed w/o having to use hands. 8) In/ out of chair w/o having to use arms. 9) Walk with minimal side to side sway. Prior Functional Status Baseline Function- ADL's Independent Baseline Function- Mobility Independent Baseline Function- Gait No Assistive device. 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 Current Functional Impairments (Reported) Functional Limitations- ADL's Sit to stand requires use of hands. In/out of bed requires use of hands to lift L leg. Functional Limitations- Mobility/Gait Gait dysfunction, heavy side to side sway. No assistive device needed. Functional Limitations- Recreation/ Can't golf or ride a bike, Hobbies Can't squat to garden or ski, Can't finish project of building a fence. Personal Factors Other Personal Factors That May Effect High pain tolerance with pt Therapy/Recovery tendancy to overdo activities. PT-OP-C Subjective Start: 06/07/19 08:11 Freq: Status: Active Protocol: Document 10/02/19 15:01 LRN (Rec: 10/02/19 15:57 LRN [id number]) OP-PT Subjective Patient Comments Patient Comments Pt states he was doing really good, walking with a normal gait and had no hip pain, but then he stood and turned to go L and felt a twinge of pain in the groin of the L hip. He has been trying to take it easy and it is feeling better today. PT-OP-D Balance Start: 06/07/19 08:11 Freq: Status: Active Protocol: Document 09/25/19 15:08 LRN (Rec: 09/25/19 16:22 LRN [id number]) Balance Tests Single Limb Standing Single Limb- Right 60+ Single Limb- Left 60+ Tandem Tandem Standing 60 L & R foot behind, hands across chest. PT-OP-E Functional Tests Start: 06/07/19 08:11 Freq: Status: Active Protocol: Document 09/11/19 12:53 LRN (Rec: 09/12/19 12:26 LRN [email or web address]) Functional Tests Timed Up and Go (TUG) Score 10 (initial was 7) Comments Required use of hands to get up/down from chair TUG Impairment Rating 0% Impaired (Score 10) PT-OP-G Mobility & Gait Start: 06/07/19 08:11 Freq: Status: Active Protocol: Document 09/25/19 15:08 LRN (Rec: 09/25/19 16:22 LRN [id number]) Stair Climbing Evaluation Technique/Endurance Stair Climbing Direction Ascend and Descend Stair Climbing Technique Step Over Step Number of Steps Climbed 4 Stair Climbing Set # Repetitions (reps) 1 PT-OP-J Posture/Palpation/Skin Start: 06/07/19 08:11 Freq: Status: Active Protocol: Document 09/11/19 12:53 LRN (Rec: 09/12/19 12:26 LRN [email or web address]) Palpation Assessment Location L hip Palpation Location L lateral hip, anterior thigh, area of healing scar Palpation Findings Soft Tissue Tightness, Tenderness PT-OP-K Range of Motion Start: 06/07/19 08:11 Freq: Status: Active Protocol: Document 09/11/19 12:53 LRN (Rec: 09/12/19 12:26 LRN [email or web address]) Hip Goniometric Range of Motion Hip Right Passive Hip ROM WFL Yes Left Passive Hip ROM WFL No Testing Position Supine Flexion w/Knee Flexed 70 Abduction 23 PT-OP-M Strength Start: 06/07/19 08:11 Freq: Status: Active Protocol: Document 09/11/19 12:53 LRN (Rec: 09/12/19 12:26 LRN [email or web address]) Hip Strength Hip Manual Muscle Testing Right Reason Not Measured WFL Comments Generally 5/5 Left Flexion (L2) 2- Poor- Abduction 2 Poor Comments AB strength not formally tested due to recent surgery. PT-OP-Q Treatments Start: 06/07/19 08:11 Freq: Status: Active Protocol: Document 10/02/19 15:01 LRN (Rec: 10/02/19 15:57 LRN [id number]) Gym Equipment Shuttle Rebound Blue Exercise Details Static standing arms out & arms across chest, Reaching fwd, squats Reps/Duration 10' Comments Feet normal stance. Red supports Therapeutic Exercises Supine Exercises SLR Supine Exercise Name Leg lifts & Reverse SLR Side left Reps/Minutes 10x each Comments Good tolerance with assist. Quads burning discomfort starting rep 6. Sidelying Exercises Hip AB Sidelying Exercise Name Hip AB Side left Reps/Minutes 10 x 3 Sitting Exercises Hip ER stretch Sitting Exercise Name Hip ER stretch f/b active hip ER Side left Reps/Minutes 3' Standing Exercises Squats Standing Exercise Name Squats Reps/Minutes 10x SLS Standing Exercise Name SLS with Hip Ext strengthening Side bilateral Reps/Minutes 15 x 2 Step ups Standing Exercise Name Stairs up/down Reps/Minutes 15x each leg Comments Alternating feet. Hip AB Standing Exercise Name Standing Hip AB & Squat walk Side bilateral Reps/Minutes 15 x 2 & 10' x 2, respectively PT-OP-T Assessment and Plan Start: 06/07/19 08:11 Freq: Status: Active Protocol: Document 10/02/19 15:01 LRN (Rec: 10/02/19 15:57 LRN [id number]) Physical Therapy Assessment Goals ROM Impairment Decreased L hip mobility limiting ability to golf and squat Short Term Goal (STG) Pt will be educated in proper squat mechanics appropriate for his L posterior MARIFER, with discussion of clearance by physician prior to performing squatting. Pt will be educated in modifications to squatting to adhere to MARIFER posteior hip precautions. STG Duration 10/09/19 (09/25/19: GOAL MET) Fish Farmer Goal (LTG) When L MARIFER restrictions are lifted (~ 6-8 weeks) the pt will be able to demonstrate appropriate self care stretches in improve hip ER/IR mobility to resume golf play. LTG Duration 11/10/19 Decreased transfer ability Impairment Transfers sit<->stand and in/ out of bed using hands to assist Short Term Goal (STG) Pt will be able to transfer in /out of bed/plinth without use of UE's. STG Duration (09/18/19: GOAL MET) [facility] Goal (LTG) Pt will be able to transfer sit <-> stand without use of UE's. 10/19/19 LTG Duration 10/19/19 Pain Impairment L hip pain with gait rated 2/ 10. [facility] Goal (LTG) Pt will be painfree with gait and will demonstrate normal gait mechanics. LTG Duration 11/10/19 (09/18/19: Progressing) Three Impairment Lacks education in L posterior hip precautions. Short Term Goal (STG) Pt will be educated in L posterior hip precautions. STG Duration 06/07/19 (06/07/19: MET GOAL) Fish Farmer Goal (LTG) Pt will be able to recall L posterior hip precautions and demonstrate appropriate functional movements while adhering to the precautions. LTG Duration 07/20/18 (09/10/19: MET GOAL) Two Impairment Lacks education in post-op transfer technique. Short Term Goal (STG) Pt will be educated in proper post-op transfer technique for supine<->sit and sit<->stand. STG Duration 06/07/19 (06/07/19: GOAL MET) [facility] Goal (LTG) Pt will demonstrate appropriate post op transfer technique for supine<->sit and sit<->stand, and will be independent and safe with transfers. (09/11/19: Proper sit to stand. Requires use of UE's to lift L) LTG Duration 07/10/18 (09/17/29: GOAL MET) One Impairment Lacks appropriate self care HEP. Short Term Goal (STG) Pt will be independent in pre- operative hip strengthening ex 's. STG Duration 06/07/19 (06/07/19: MET GOAL) [facility] Goal (LTG) Pt will be independent in a post-operative self care HEP. LTG Duration 09/05/20 (09/18/19: Progressing, need gait training to normalize gait) Assessment Summary Assessment Pt is ~3.5 weeks s/p L MARIFER (on 09/06/19). Pt has slight Trendelberg gt on L as expected. During gait training at end of therapy pt was able to ambulate with barely a visible limp. Physical Therapy Plan Frequency and Duration Frequency of Treatment 2x/Week Plan of Care Start Date 09/11/19 Plan of Care End Date 11/10/19 Next Visit Focus/Plan Next Note Type Discharge Summary Next Visit Plan Recheck in 5 weeks for final gait training and DC to HEP L posterior MARIFER rehab (caution pt has high pain tolerance). Strengthening L hip, HEP as needed (flex > extensors) Stretches & assess donning/ doffing shoes and socks; and for return to golf.
--- NOTE | 2019-10-30 16:18 | PT.OTN ---
Current Diagnoses Unilateral primary osteoarthritis, unspecified hip (10/30/19) Physical Therapy Treatment Note PT-OP-A Visit Information Start: 06/07/19 08:11 Freq: Status: Active Protocol: Document 10/30/19 15:08 LRN (Rec: 10/30/19 16:18 LRN [id number]) Out-Patient Physical Therapy Visit Information Visit Information Visit Type Treatment Note Visit Start Time 15:08 Visit Stop Time 15:50 Total Visit Minutes 42 Visit Number 6 Evaluation Information Evaluation Date 06/07/19 Precautions Precautions Pt reports hx of R wrist torn ligaments, torn L hamstring, R 5th digit fx 4-5 yrs ago. Chart review indicated Lumbosacral spondylosis & hx of achilles tendon repair. PT-OP-B Current Condition Start: 06/07/19 08:11 Freq: Status: Active Protocol: Document 09/11/19 12:53 LRN (Rec: 09/11/19 13:34 LRN [id number]) Current Condition History of Current Condition Onset Date 09/06/19 Current Complaints Tightness/pain of L hip, limited in walking, leg strength History of Current Condition MARIFER surgery 09/06/19, overnight in hospital. Given home PT ex 's that he has been doing ex's 2x/day. Also walking 1/4 mile. Hip only feels tight. Only uses a cane to do stairs, otherwise stopped using a cane yesterday. Taking Naproxin and baby aspirin and oxycotin. Starting to wean off medications. Developmental History Developmental History Played baseball for 42 yrs, 2- 3 yrs ago was treated in PT for IT-Band dysfunction. Treatment Goals Patient/Caregiver Goals Pt goals: 1) Painfree. 2) Painfree with gait. 3) Greater flexibility in rotation to return to golf. 4 ) Be able to ride a bike. 5) Lateral movement sideways to finish building a fence. 6) Be able to squat to garden and ski. 7) In/out of bed w/o having to use hands. 8) In/ out of chair w/o having to use arms. 9) Walk with minimal side to side sway. Prior Functional Status Baseline Function- ADL's Independent Baseline Function- Mobility Independent Baseline Function- Gait No Assistive device. 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 Current Functional Impairments (Reported) Functional Limitations- ADL's Sit to stand requires use of hands. In/out of bed requires use of hands to lift L leg. Functional Limitations- Mobility/Gait Gait dysfunction, heavy side to side sway. No assistive device needed. Functional Limitations- Recreation/ Can't golf or ride a bike, Hobbies Can't squat to garden or ski, Can't finish project of building a fence. Personal Factors Other Personal Factors That May Effect High pain tolerance with pt Therapy/Recovery tendancy to overdo activities. PT-OP-C Subjective Start: 06/07/19 08:11 Freq: Status: Active Protocol: Document 10/30/19 15:08 LRN (Rec: 10/30/19 16:18 LRN [id number]) OP-PT Subjective Patient Comments Patient Comments Golfing, has people watching shoulders for proper walking and equal strides. Must consciously think about it. No pain. PT-OP-D Balance Start: 06/07/19 08:11 Freq: Status: Active Protocol: Document 09/25/19 15:08 LRN (Rec: 09/25/19 16:22 LRN [id number]) Balance Tests Single Limb Standing Single Limb- Right 60+ Single Limb- Left 60+ Tandem Tandem Standing 60 L & R foot behind, hands across chest. PT-OP-E Functional Tests Start: 06/07/19 08:11 Freq: Status: Active Protocol: Document 09/11/19 12:53 LRN (Rec: 09/12/19 12:26 LRN [id number]) Functional Tests Timed Up and Go (TUG) Score 10 (initial was 7) Comments Required use of hands to get up/down from chair TUG Impairment Rating 0% Impaired (Score 10) PT-OP-G Mobility & Gait Start: 06/07/19 08:11 Freq: Status: Active Protocol: Document 09/25/19 15:08 LRN (Rec: 09/25/19 16:22 LRN [id number]) Stair Climbing Evaluation Technique/Endurance Stair Climbing Direction Ascend and Descend Stair Climbing Technique Step Over Step Number of Steps Climbed 4 Stair Climbing Set # Repetitions (reps) 1 PT-OP-J Posture/Palpation/Skin Start: 06/07/19 08:11 Freq: Status: Active Protocol: Document 09/11/19 12:53 LRN (Rec: 09/12/19 12:26 LRN [id number]) Palpation Assessment Location L hip Palpation Location L lateral hip, anterior thigh, area of healing scar Palpation Findings Soft Tissue Tightness, Tenderness PT-OP-K Range of Motion Start: 06/07/19 08:11 Freq: Status: Active Protocol: Document 10/30/19 15:08 LRN (Rec: 10/30/19 16:18 LRN [id number]) Hip Goniometric Range of Motion Hip Right Passive Internal Rotation 20 External Rotation 75 Left Passive Internal Rotation 60 External Rotation 20 PT-OP-M Strength Start: 06/07/19 08:11 Freq: Status: Active Protocol: Document 09/11/19 12:53 LRN (Rec: 09/12/19 12:26 LRN [id number]) Hip Strength Hip Manual Muscle Testing Right Reason Not Measured WFL Comments Generally 5/5 Left Flexion (L2) 2- Poor- Abduction 2 Poor Comments AB strength not formally tested due to recent surgery. PT-OP-Q Treatments Start: 06/07/19 08:11 Freq: Status: Active Protocol: Document 10/30/19 15:08 LRN (Rec: 10/30/19 16:18 LRN [id number]) Therapeutic Exercises Supine Exercises Hip ER/IR Supine Exercise Name Hip ER/IR stretch Comments ROM taken Sitting Exercises Self stretch into ankle EV/pronation Sitting Exercise Name Self stretch into ankle EV/ pronation Side right Comments Also training for self stretch Hip ER stretch Sitting Exercise Name Hip ER stretch f/b active hip ER Side left Reps/Minutes 1' Standing Exercises SLS Standing Exercise Name SLS with Hip Ext strengthening Side bilateral Reps/Minutes 15 x 2 Step ups Standing Exercise Name 6 & 8 Stairs step ups stair ambulation Reps/Minutes 8' Comments Alternating feet. Hip AB Standing Exercise Name Standing Hip AB & Squat walk Side bilateral Reps/Minutes 10' Comments Phys cuing for proper posturing Gait Training Gait Activity Wgt shifting Description Navel over foot-bilaterally Device Used Wall Bar Level of Assistance Physical & verbal cuing Surface level Distance/Duration 6' Treatment Focus Proper posture while moving navel over foot. Comments Pt tended SB trunk excessively Stance phase Description Proper pelvic wgt shift and proper trunk posturing for SLS Device Used None Level of Assistance None Surface Level Distance/Duration 4' Self-Care/Home Management Treatment Education Patient Education Home Exercise Program Activities Self-Care/Home Management Activities Issued, discussed & reviewed HEP for pt to focus on ( strengthening gluts and glut medius, ankled stretch, and proper posture with weight shifting. PT-OP-T Assessment and Plan Start: 06/07/19 08:11 Freq: Status: Active Protocol: Document 10/30/19 15:08 LRN (Rec: 10/30/19 16:18 LRN [id number]) Physical Therapy Assessment Goals ROM Impairment Decreased L hip mobility limiting ability to golf and squat Short Term Goal (STG) Pt will be educated in proper squat mechanics appropriate for his L posterior MARIFER, with discussion of clearance by physician prior to performing squatting. Pt will be educated in modifications to squatting to adhere to MARIFER posteior hip precautions. STG Duration 10/09/19 (09/25/19: GOAL MET) Manager Fraud Goal (LTG) When L MARIFER restrictions are lifted (~ 6-8 weeks) the pt will be able to demonstrate appropriate self care stretches in improve hip ER/IR mobility to resume golf play. LTG Duration 11/10/19 (10/30/19: MET GOAL ) Decreased transfer ability Impairment Transfers sit<->stand and in/ out of bed using hands to assist Short Term Goal (STG) Pt will be able to transfer in /out of bed/plinth without use of UE's. STG Duration (09/18/19: GOAL MET) Fpc Goal (LTG) Pt will be able to transfer sit <-> stand without use of UE's. 10/19/19 LTG Duration 10/19/19 (10/30/19: MET GOAL) Pain Impairment L hip pain with gait rated 2/ 10. Manager Fraud Goal (LTG) Pt will be painfree with gait and will demonstrate normal gait mechanics. LTG Duration 11/10/19 (10/30/19: MET GOAL) Three Impairment Lacks education in L posterior hip precautions. Short Term Goal (STG) Pt will be educated in L posterior hip precautions. STG Duration 06/07/19 (06/07/19: MET GOAL) Manager Fraud Goal (LTG) Pt will be able to recall L posterior hip precautions and demonstrate appropriate functional movements while adhering to the precautions. LTG Duration 07/20/18 (09/10/19: MET GOAL) Two Impairment Lacks education in post-op transfer technique. Short Term Goal (STG) Pt will be educated in proper post-op transfer technique for supine<->sit and sit<->stand. STG Duration 06/07/19 (06/07/19: GOAL MET) Fpc Goal (LTG) Pt will demonstrate appropriate post op transfer technique for supine<->sit and sit<->stand, and will be independent and safe with transfers. (09/11/19: Proper sit to stand. Requires use of UE's to lift L) LTG Duration 07/10/18 (09/17/29: GOAL MET) One Impairment Lacks appropriate self care HEP. Short Term Goal (STG) Pt will be independent in pre- operative hip strengthening ex 's. STG Duration 06/07/19 (06/07/19: MET GOAL) Manager Fraud Goal (LTG) Pt will be independent in a post-operative self care HEP. LTG Duration 09/05/20 (10/30/19: MET GOAL) Assessment Summary Assessment Pt is ~8 weeks post-op L MARIFER surgery. He demonstrates a Trendelenburg type gait on the R due to poor habits, but the L operative side shows no significant signs of dysfunction. He has some functional weakness in the L gluteals that is visible with 8 (at home) stair ambulation. The pt has met all goals and appears to have a good understanding of his HEP and the ex's he must focus ont to improve minor changes with gait on level and stairs. The pt has done very well in his rehabilitation program, gaining a surprising amount of hip ER on his home program and is now able to don/doff his socks and shoes and he has returned to golfing. Physical Therapy Plan Discharge Physical Therapy Discharge Reasons Goals Met Discharge Comments Pt tends to ambulate with excessive trunk sway due to habit mostly. He has a stiff R ankle that hinders his ability to wgt shift onto his R leg properly, but the L side shows no obvious signs of dysfunction with gait. Thank you for your referral.
== END 2019-10-31 10:52 ==
LOC: PHYS 15:00
PROVIDERS: PCP Family Medicine; Referring Provider Orthopaedic Surgery; Visit Provider Orthopaedic Surgery
DX: M16.10 Unilateral primary osteoarthritis, unspecified hip (principal)
CPT/HCPCS: 97110; 97112; 97116; 97161; 97162; 97535

== ENCOUNTER → 2020-05-30 16:12 | Outpatient (CLI) | payer MEDICARE, SELFPAY ==
[2019-09-06 13:04] VITALS: BMI 27.1
[2020-05-30] MEDS: COVID-19 VACC #1, MRNA(MOD) 100 MCG/0.5 ML VIAL IM (16:43)
== END ==
PROVIDERS: PCP Family Medicine; Visit Provider Internal Medicine
DX: Z23 Encounter for immunization (principal)
CPT/HCPCS: 0011A; 91301

== ENCOUNTER → 2020-06-27 08:49 | Outpatient (CLI) | payer MEDICARE, SELFPAY ==
[2019-09-06 13:04] VITALS: BMI 27.1
[2020-06-27] MEDS: COVID-19 VACC #2, MRNA(MOD) 100 MCG/0.5 ML VIAL IM (09:02)
== END ==
PROVIDERS: PCP Family Medicine; Visit Provider Internal Medicine
DX: Z23 Encounter for immunization (principal)
CPT/HCPCS: 0012A; 91301